=== PATIENT | male | born 1965 | race Caucasian/White ===

== ENCOUNTER 2018-07-06 06:55 | Day surgery (SDC) | payer OTHER, SELFPAY ==
[2018-07-06 07:04] VITALS: BP 135/82; PULSE 63; RESP 16; TEMP 36.9; O2SAT 99
[2018-07-06] MEDS: Lactated Ringers 1,000 ML 30 ML IV (07:38)
--- NOTE | 2018-07-06 09:55 | W.COLOREPORT ---
Date of service: 07/06/18 Time of Service: 09:30 Colonoscopy Report Date of procedure: 07/06/18 Pre-op diagnosis general: Colorectal cancer screening Post-op diagnosis procedure note: same Procedure: Normal colonoscopy to the cecum Surgeon: Álvaro Valdovinos Anesthesia proc note operative: MAC (Iris Corona CRNA; ASA 2 Mallampati class II) Estimated blood loss (mL): 0 Pathology: none sent Complications: None Disposition: same day Indications: 52-year-old male presenting for colorectal cancer screening. He is been asymptomatic, and has no family history of colorectal cancer. Colonoscopy procedure has been read and reviewed with him, and all the risks of the procedure were discussed at length. All his questions been answered to his satisfaction. Consents been obtained to proceed with colonoscopy. Prep: Miralax/Dulcolax (Prep quality excellent) Findings: In examining the colon from cecum to anus, no abnormalities were noted of the colon, rectum, and anorectal junction. Procedure Description: The patient was seen in the day surgery waiting area. His identification was confirmed, and procedure checked. He was then brought to the procedure room. Monitoring for telemetry, blood pressure, oxygen saturation, and end tidal CO2 monitoring were applied. An appropriate time out was performed to confirm, identification, allergies, medication, procedure, was performed. Sedation was titrated for affect by the GREY ROLL WORKER; Once adequate sedation was achieved, I performed a inspection of the external perineum, and a digitial rectal examination. No significant external abnormalities were noted. On digital rectal examination, there was no blood, no masses, good rectal tone, and a normal prostate. I advanced the colonoscope from the anus to the cecum under direct visualization. The cecum was identified by the ileal-cecal valve, and the appendiceal orifice. The scope was then withdrawn in circumferential manner from the cecum to the rectum. No abnormalites were noted in the colon. The scope was then withdrawn into the rectum, and retroflexed. No abnormalities were noted of the rectum or anorectal junction. The scope was then withdrawn, terminating the procedure. There were no complications during the procedure, and the patient tolerated the procedure well. He was returned to the day surgery recovery area in good condition. Plan: Will continue with routine screening for colorectal cancer according to current consensus guidelines, which is currently 10 years.
--- NOTE | 2018-07-06 10:02 | W.PM.DSUDISC ---
Discharge Plan Disposition Patient Disposition: HOME Condition: Good Discharge Details Reason For Visit: Screening Attending Provider: Álvaro Valdovinos Primary Care Provider: Navdeep Multani Home Meds and New Rx's Prescriptions: No Action bisacodyl [Dulcolax (bisacodyl)] 5 mg tablet,delayed release (DR/EC) 5 mg PO ONCE Qty: 4 RF: 0 polyethylene glycol 3350 17 gram/dose powder 255 g PO ONCE Qty: 255 RF: 0 omega 6-xid-ztc-fish oil 900-1,400 mg capsule,delayed release(DR/EC) 1 cap PO DAILY RF: 0 turmeric-turmeric ext-pepper 500-3 mg capsule 1,000 mg PO DAILY RF: 0 Centrum Ultra Men's 1 EACH tablet 1 ea PO DAILY RF: 0 ascorbic acid (vitamin C) [Vitamin C] 500 MG capsule, extended release 500 mg PO daily prn RF: 0 Discharge Instructions Instructions: Colonoscopy (DC) Stand Alone Forms: Colonoscopy Post Instructions, Smitha Clark (DSU) Activity:: Activity as Tolerated Diet:: As Tolerated Discharge Orders Discharge Orders: Discharge Order (Routine); Ordered 07/06/18 Ordered By: Álvaro Valdovinos DS: Diagnosis Discharge Diagnosis (1) Encounter for screening colonoscopy: Status: Acute Asessment and Plan: Colonoscopy performed: Colonoscopy Report Date of procedure: 07/06/18 Pre-op diagnosis general: Colorectal cancer screening Post-op diagnosis procedure note: same Procedure: Normal colonoscopy to the cecum Surgeon: Álvaro Valdovinos Anesthesia proc note operative: MAC (Iris Corona CRNA; ASA 2 Mallampati class II) Estimated blood loss (mL): 0 Pathology: none sent Complications: None Disposition: same day Indications: 52-year-old male presenting for colorectal cancer screening. He is been asymptomatic, and has no family history of colorectal cancer. Colonoscopy procedure has been read and reviewed with him, and all the risks of the procedure were discussed at length. All his questions been answered to his satisfaction. Consents been obtained to proceed with colonoscopy. Prep: Miralax/Dulcolax (Prep quality excellent) Findings: In examining the colon from cecum to anus, no abnormalities were noted of the colon, rectum, and anorectal junction. Procedure Description: The patient was seen in the day surgery waiting area. His identification was confirmed, and procedure checked. He was then brought to the procedure room. Monitoring for telemetry, blood pressure, oxygen saturation, and end tidal CO2 monitoring were applied. An appropriate time out was performed to confirm, identification, allergies, medication, procedure, was performed. Sedation was titrated for affect by the ROTARY DRYER OPERATOR; Once adequate sedation was achieved, I performed a inspection of the external perineum, and a digitial rectal examination. No significant external abnormalities were noted. On digital rectal examination, there was no blood, no masses, good rectal tone, and a normal prostate. I advanced the colonoscope from the anus to the cecum under direct visualization. The cecum was identified by the ileal-cecal valve, and the appendiceal orifice. The scope was then withdrawn in circumferential manner from the cecum to the rectum. No abnormalites were noted in the colon. The scope was then withdrawn into the rectum, and retroflexed. No abnormalities were noted of the rectum or anorectal junction. The scope was then withdrawn, terminating the procedure. There were no complications during the procedure, and the patient tolerated the procedure well. He was returned to the day surgery recovery area in good condition. Plan: Will continue with routine screening for colorectal cancer according to current consensus guidelines, which is currently 10 years.
[2018-07-06 10:05] VITALS: BP 115/62; PULSE 67; RESP 18; TEMP 36.6; O2SAT 94
--- NOTE | 2018-07-06 10:05 | PDOC.DSDIS_ITS ---
Discharge Plan Disposition Patient Disposition: HOME Condition: Good Discharge Details Reason For Visit: Screening Attending Provider: Álvaro Valdovinos Primary Care Provider: Navdeep Multani Home Meds and New Rx's Prescriptions: No Action bisacodyl [Dulcolax (bisacodyl)] 5 mg tablet,delayed release (DR/EC) 5 mg PO ONCE Qty: 4 RF: 0 polyethylene glycol 3350 17 gram/dose powder 255 g PO ONCE Qty: 255 RF: 0 omega 9-phn-xkp-fish oil 900-1,400 mg capsule,delayed release(DR/EC) 1 cap PO DAILY RF: 0 turmeric-turmeric ext-pepper 500-3 mg capsule 1,000 mg PO DAILY RF: 0 Centrum Ultra Men's 1 EACH tablet 1 ea PO DAILY RF: 0 ascorbic acid (vitamin C) [Vitamin C] 500 MG capsule, extended release 500 mg PO daily prn RF: 0 Discharge Instructions Instructions: Colonoscopy (DC) Stand Alone Forms: Colonoscopy Post Instructions, Smitha Clark (DSU) Activity:: Activity as Tolerated Diet:: As Tolerated Discharge Orders Discharge Orders: Discharge Order (Routine); Ordered 07/06/18 Ordered By: Álvaro Valdovinos DS: Diagnosis Discharge Diagnosis (1) Encounter for screening colonoscopy: Status: Acute Asessment and Plan: Colonoscopy performed: Colonoscopy Report Date of procedure: 07/06/18 Pre-op diagnosis general: Colorectal cancer screening Post-op diagnosis procedure note: same Procedure: Normal colonoscopy to the cecum Surgeon: Álvaro Valdovinos Anesthesia proc note operative: MAC (Iris Corona CRNA; ASA 2 Mallampati class II) Estimated blood loss (mL): 0 Pathology: none sent Complications: None Disposition: same day Indications: 52-year-old male presenting for colorectal cancer screening. He is been asymptomatic, and has no family history of colorectal cancer. Colonoscopy procedure has been read and reviewed with him, and all the risks of the procedure were discussed at length. All his questions been answered to his satisfaction. Consents been obtained to proceed with colonoscopy. Prep: Miralax/Dulcolax (Prep quality excellent) Findings: In examining the colon from cecum to anus, no abnormalities were noted of the c olon, rectum, and anorectal junction. Procedure Description: The patient was seen in the day surgery waiting area. His identification was confirmed, and procedure checked. He was then brought to the procedure room. Monitoring for telemetry, blood pressure, oxygen saturation, and end tidal CO2 monitoring were applied. An appropriate time out was performed to confirm, iden tification, allergies, medication, procedure, was performed. Sedation was titrated for affect by the VETERAN APPEALS REVIEWER; Once adequate sedation was achieved, I performed a inspection of the external perineum, and a digitial rectal examination. No significant external abnormalities were noted. On digital rectal examination, there was no blood, no masses, good rectal tone, and a normal prostate. I advanced the colonoscope from the anus to the cecum under direct visualization. The cecum was identified by the ileal-cecal valve, and the appendiceal orifice. The scope was then withdrawn in circumferential manner from the cecum to the rectum. No abnormalites were noted in the colon. The scope was then withdrawn into the rectum, and retroflexed. No abnormalities were noted of the rectum or anorectal junction. The scope was then withdrawn, terminating the procedure. There were no complications during the procedure, and the patient tolerated the procedure well. He was returned to the day surgery recovery area in good condition. Plan: Will continue with routine screening for colorectal cancer according to current consensus guidelines, which is currently 10 years.
== END 2018-07-06 10:15 | disposition home or self-care (01) ==
PROVIDERS: PCP Family Medicine; Visit Provider Surgery
PROC: 0DJD8ZZ Inspection of Lower Intestinal Tract, Via Natural or Artificial Opening Endoscopic (ICD-10-PCS; CPT 45378; principal; 2018-07-06 08:15)
DX: Z12.11 Encounter for screening for malignant neoplasm of colon (principal)
CPT/HCPCS: 45378

== ENCOUNTER 2021-09-24 03:29 | Outpatient (CLI) | payer BC, SELFPAY ==
[2021-09-24 08:03] LABS: Calculated LDL 128 mg/dL (<100); Cholesterol 195 mg/dL (<200); Glucose 96 mg/dL (74-106); HDL Cholesterol 55 mg/dL (40-60); Triglyceride 61 mg/dL (<150)
[2021-09-24 21:10] LABS: PSA, Screening 1.1 ng/mL (0.0-3.5)
== END 2021-09-24 03:30 | disposition home or self-care (01) ==
LOC: LBO 03:29
PROVIDERS: PCP Family Medicine; Visit Provider Family Medicine
DX: R73.9 Hyperglycemia, unspecified (principal); E78.5 Hyperlipidemia, unspecified; Z12.5 Encounter for screening for malignant neoplasm of prostate
CPT/HCPCS: 36415; 80061; 82947; 84153

== ENCOUNTER 2022-09-07 16:11 | Outpatient (CLI) | payer BC, SELFPAY ==
[2022-09-07 17:42] LABS: Calculated LDL 106 mg/dL (<100); Cholesterol 182 mg/dL (<200); HDL Cholesterol 59 mg/dL (40-60); Triglyceride 87 mg/dL (<150)
[2022-09-08 18:58] LABS: PSA, Screening 1.1 ng/mL (<=3.5)
[2022-09-15 09:37] LABS: Testosterone, Free 11.4 ng/dL (3.87-14.7); Testosterone, Total 512 ng/dL (240-950)
== END 2022-09-07 16:12 | disposition home or self-care (01) ==
LOC: LBO 16:14
PROVIDERS: PCP Family Medicine; Visit Provider Family Medicine
DX: Z00.00 Encounter for general adult medical examination without abnormal findings (principal); Z12.5 Encounter for screening for malignant neoplasm of prostate; E78.5 Hyperlipidemia, unspecified; M25.552 Pain in left hip; M25.551 Pain in right hip
CPT/HCPCS: 36415; 80061; 84153; 84402; 84403

== ENCOUNTER 2022-09-08 10:37 | Outpatient (CLI) | payer BC, SELFPAY ==
--- NOTE | 2022-09-08 09:15 | DI.RAD_ITS ---
Exam(s) XR HIP RT COMPLETE AP PELVIS EXAM: XR HIP RT COMPLETE AP PELVIS INDICATION: rt hip pain,M25.551. COMPARISON: No exams were available for comparison TECHNIQUE: 2D digital imaging was performed. Two views. FINDINGS: Mild bilateral hip joint space narrowing. Moderate bilateral periarticular spurring. No flattening of the femoral heads. SI joints and pubic symphysis are unremarkable. IMPRESSION: Symmetric degenerative changes of the hips. DATA REPOSITORY: RADIATION DOSE DELIVERED:
== END 2022-09-08 10:57 ==
LOC: DI 10:38
PROVIDERS: PCP Family Medicine; Visit Provider Family Medicine
DX: M16.0 Bilateral primary osteoarthritis of hip (principal)
CPT/HCPCS: 73502

== ENCOUNTER 2022-10-06 02:17 | Outpatient (CLI) | payer BC, SELFPAY ==
--- NOTE | 2022-10-06 08:00 | DI.MRI_ITS ---
Exam(s) MR UPPER JOINT RT WO EXAM: MR UPPER JOINT RT WO CLINICAL HISTORY: rt shoulder pain,m25.511,significant rc tear clinically TECHNIQUE: Multiplanar multisequence MRI of the shoulder was performed. COMPARISON: None. No plain films available time this MRI interpretation. FINDINGS: MARROW:There is no evidence of fracture, Hill-Sachs deformity, nor ominous osseous lesions. There is a E solitary well-defined degenerative subarticular cyst in the lateral aspect of the humeral head wh ich measures 9 by 7 by 7 millimeters. No surrounding bone edema. ROTATOR CUFF MECHANISM: AC JOINT/ACROMIUM: There is prominent degenerative change in the AC joint with some impingement evide nt.. There is no evidence of os acromiale. Supraspinatus: There is a large full-thickness tear of supraspinatus-rotator cuff with retraction mus culotendinous junction to the medial 3rd of humeral head leaving a large gap area. Continuity of flu id between the glenohumeral and subacromial spaces. There is no prominent atrophy. Infraspinatus: Intact. No evidence of tear nor muscle atrophy. Teres Minor: Intact. No evidence of tear nor muscle atrophy. Subscapularis/anterior cuff: Intact. No abnormal signal at the level of the multipennate insertional fibers. No significant tear nor atrophy. BICEPS TENDON: Not displaced from the number surrounded by fluid in the biceps tendon sheath. Loose bodies within the fluid-filled tendon sheath. LABRUM: There is signal abnormality in the superior labrum posterior to the biceps insertion site con sistent with element SLAP tear. There is also signal abnormality in the posterior horn consistent wi th some tearing of the posterior labrum. Anterior labrum appears intact. Inferior labrum exhibits m ild irregularity. No obvious tear of the inferior glenohumeral ligament. Small loose body in the in ferior recess noted. GLENOHUMERAL JOINT: Joint effusion. Some synovial thickening. Small loose intra-articular body in t he inferior recess. Small osteophyte on the inferior sacral ower surface of the humeral head. IMPRESSION: 1. Large full-thickness rotator cuff supraspinatus tear with retraction musculotendinous junction. O ther components of the rotator cuff mechanism appear intact. Significant degenerative change in the AC joint. Impingement noted at this level 2. No evidence of biceps tendon tear. Multilevel labral tears 3. Glenohumeral joint effusion with extension of fluid into the subacromial space and down the biceps tendon sheaths as well as into the medial recess. There is a small loose body in the inferior reces s noted. 4. Degenerative cyst measuring 9 x 7 mm in the lateral humeral head-greater tuberosity region. No s urrounding bone edema. DATA REPOSITORY:
== END 2022-10-06 02:37 ==
LOC: DI 02:18
PROVIDERS: PCP Family Medicine; Visit Provider Family Medicine
DX: M25.511 Pain in right shoulder (principal); M75.101 Unspecified rotator cuff tear or rupture of right shoulder, not specified as traumatic; M75.41 Impingement syndrome of right shoulder; M25.411 Effusion, right shoulder; M24.011 Loose body in right shoulder
CPT/HCPCS: 73221

== ENCOUNTER 2022-10-11 14:12 | Outpatient (CLI) | payer BC, SELFPAY ==
--- NOTE | 2022-10-11 14:14 | DI.RAD_ITS ---
Exam(s) XR SHOULDER RT COMPLETE 2+V EXAM: XR SHOULDER RT COMPLETE 2+V CLINICAL HISTORY: Right shoulder pain. TECHNIQUE: 2D digital imaging was performed. COMPARISON: No exams were available for comparison FINDINGS: Two views: No evidence of fracture or dislocation. There is no prominent glenohumeral joint space narrowing but there is small osteophyte on the inferior articular surface of the humeral head. There is also a de generative cyst in the lateral aspect of the humeral head. Subacromial space is not diminished and t here is no calcification within the subacromial space. Mild degenerative changes are noted in the AC joint. Coracoid process is intact. No os acromiale. No soft tissue calcifications in the subacrom ial space IMPRESSION: Degenerative changes in the glenohumeral joint, as described above. DATA REPOSITORY: RADIATION DOSE DELIVERED:
== END 2022-10-11 14:13 | disposition home or self-care (01) ==
LOC: DIORS 14:12
PROVIDERS: PCP Family Medicine; Referring Provider Family Medicine; Visit Provider Student in an Organized Health Care Education/Training Program
DX: M25.511 Pain in right shoulder (principal); M75.81 Other shoulder lesions, right shoulder; M25.811 Other specified joint disorders, right shoulder
CPT/HCPCS: 73030

== ENCOUNTER 2022-11-04 06:07 | Day surgery (SDC) | payer BC, SELFPAY ==
[2022-11-04] VITALS (12 sets, daily range): BP systolic 79–130; BP diastolic 59–92; PULSE 63–80; RESP 13–16; TEMP 36.3–36.6; O2SAT 94–98; BMI 26.9
[2022-11-04] MEDS: Lactated Ringers 1,000 ML 30 ML IV ×2 (06:53→11:35)
--- NOTE | 2022-11-04 07:02 | W.ANESPRE ---
General Info Date of Service Date Performed: 11/04/22 Height: 6 ft Weight: 89.9 kg Body Mass Index (BMI): 26.9 Surgical Procedure: Operation Date: 11/04/22 07:40 Proposed Procedure Side Surgeon p Shoulder Rotator Cuff Arthroscopic and possible Allograft Superior Capsular Reconstruction Right Guy Youngblood MD Meds Allergies and Home Medications Allergies Allergy/AdvReac Type Severity Reaction Status Date / Time No Known Allergies Allergy Verified 11/03/22 12:24 Home Medication Medication Instructions Recorded multivit,Ca,min-iron 8 mg-folic 1 ea PO DAILY 04/08/16 acid 200 mcg-lycopene 600 mcg tablet (Centrum unbound technologies Men's) ascorbic acid (vitamin C) 500 mg 500 mg PO daily prn 04/14/17 capsule,extended release (Vitamin C) omega 1-ybz-amj-fish oil 900 1 cap PO DAILY 04/27/18 mg-1,400 mg capsule,delayed release zinc 50 mg tablet 50 mg PO DAILY 05/08/20 meloxicam 15 mg tablet 15 mg PO DAILY #30 tabs 09/13/22 aspirin 81 mg tablet,delayed 81 mg PO DAILY prevent blood clot 11/04/22 release 7 days #7 tabs naproxen 250 mg tablet 250 - 500 mg PO BID PRN #40 tabs 11/04/22 oxycodone 5 mg tablet 5 - 10 mg PO Q4H PRN moderate to 11/04/22 severe pain #18 tabs Current Visit Medications: Current Medications Generic Name Dose Route Start Last Admin Trade Name Freq PRN Reason Stop Dose Admin Ringer's Solution 1,000 mls @ 30 mls/hr 11/04/22 06:00 11/04/22 06:53 IV 11/04/22 16:00 30 mls/hr INFUSION TONYA Administration Cefazolin Sodium/Dextrose 2 gm in 50 mls @ 100 mls/hr 11/04/22 06:00 Ancef Duplex IVPB 11/04/22 23:59 PREOP TONYA IV Miscellaneous Supplies 1 each 11/04/22 06:00 Iv Access IV 11/04/22 23:59 DIRECTED TONYA Sodium Chloride 0 ml 11/04/22 06:00 Normal Saline Flush 10 Ml Syr IV 11/04/22 23:59 PRN PRN Sodium Chloride 0 ml 11/04/22 06:00 Normal Saline 10 Ml Vial IJ 11/04/22 23:59 DIRECTED PRN Sterile Water 0 ml 11/04/22 06:00 Water,Injection,Sterile 10 Ml Vial IJ 11/04/22 23:59 DIRECTED PRN PFSH Active Problems Active Problems: Problem Status Onset Code Traumatic tear of right rotator cuff ~08/2022 S46.011A Right shoulder pain M25.511 Bilateral hip pain M25.551, M25.552 Low back pain M54.50 Ganglion cyst M67.40 Encounter for screening colonoscopy Z12.11 Adopted Z02.82 Medical History Medical History (Updated 11/04/22 @ 07:13 by Guy Youngblood MD) Normal colonoscopy (07/06/18) Dr Valdovinos, repeat 10 years Tobacco Smoking/Tobacco Use Status: Former Tobacco Use Passive smoking exposure: Yes Alcohol Alcohol Intake: current Alcohol intake frequency: a few times a week Alcohol type: beer and hard liquor Substance Use Substance use: Never Substance use type: does not use Vital Signs and Lab Results Vital Signs Most Recent Vital Signs in EMR: Most Recent Vital Signs Temp Pulse Resp BP Pulse Ox 36.5 C 76 16 108/79 98 11/04/22 06:26 11/04/22 06:26 11/04/22 06:26 11/04/22 06:26 11/04/22 06:26 Lab Results Blood Type / Crossmatch: No Data to Display Complete Blood Count: No Data to Display Complete Metabolic Panel: No Data to Display Liver Function Panel: No Data to Display Coagulation Panel: No Data to Display Cardiac Panel: No Data to Display Arterial Blood Gas: No Data to Display Venous Blood Gas: No Data to Display Pancreas Panel: No Data to Display Thyroid Panel: No Data to Display Infectious Disease: No Data to Display Blood Cultures: No Data to Display Toxicology Panel: No Data to Display Anesthesia Assessment and Plan Anesthesia History Personal History: No History of Anesthesia Complications Family History: No Family History of Anesthesia Complications Exercise Tolerance Exercise Tolerance: Metabolic Equivalents>4 Pertinent Negatives Pertinent Negatives: No Symptoms of GERD, No Major Cardiovascular Symptoms or Complaints, No Major Pulmonary Symptoms or Complaints and No History of CVA/TIA Cardiac & Pulmonary Exam Cardiac Exam: Normal S1/S2 Heart Sounds Pulmonary Exam: Clear Bilateral Breath Sounds Implantable Cardiac Device Does patient have a Pacemaker or an ICD?: No Airway Exam Known Difficult Airway: No Mallampati Class: 1 Mouth Opening: Normal (> 3cm) Thyromental Distance: Greater than 3 cm Neck Range of Motion: Full ROM Neck Circumference: Normal Teeth Condition: Normal Dentition ASA Classification ASA Score: ASA 2 Emergency Case?: No NPO Status NPO Status: NPO Clears >2 hours, Solids >8 hours Anesthesia Plan Resuscitation Status: Full Code Anesthesia Technique: General Anesthesia Airway Planned: Endotracheal Tube Pain Management: Surgeon and patient request nerve block Monitors Used: Standard Monitors
--- NOTE | 2022-11-04 07:13 | W.PM.DSUDISC ---
Date of service: 11/04/22 Time of Service: 11:00 Discharge Plan Disposition Patient Disposition: Home Discharge Details Attending Provider: Guy Youngblood Primary Care Provider: Navdeep Multani Home Meds and New Rx's Prescriptions: New naproxen 250 mg tablet 250 - 500 mg PO BID PRNQty: 40 0RF Rx Instructions: take with a meal aspirin 81 mg tablet,delayed release (DR/EC) 81 mg PO DAILY 7 Days Qty: 7 0RF oxycodone 5 mg tablet 5 - 10 mg PO Q4H MDD 30 mg PRN (Reason: moderate to severe pain) Qty: 18 0RF Continued zinc 50 mg tablet 50 mg PO DAILY omega 6-oqk-ozh-fish oil 900-1,400 mg capsule,delayed release(DR/EC) 1 cap PO DAILY Centrum Ultra Men's 1 EACH tablet 1 ea PO DAILY ascorbic acid (vitamin C) [Vitamin C] 500 MG capsule, extended release 500 mg PO daily prn meloxicam 15 mg tablet 15 mg PO DAILY Qty: 30 2RF Discharge Instructions Additional Instructions: Surgery: Right shoulder arthroscopy with allograft superior capsular reconstruction, rotator cuff repair (infraspinatus), biceps tenodesis, extensive debridement, and subacromial decompression. Activity: For 6 weeks, you should keep your arm at your side in a neutral position at all times except for physical therapy. Do not try to lift or raise your arm using your own muscles. You should use the sling whenever you are out of the house. You may have to adjust the abduction pillow or remove it for comfort. At home it is best to remove the sling and rest the arm on a pillow at your side or support the operative side with your other hand. You may allow the arm to dangle at your side. A physical therapy prescription will be sent electronically to begin in about 3 weeks. CONSERVATIVE protocol. Prescriptions: Aspirin 81 mg take 1 daily to prevent a blood clot for 7 days Naproxen 250 mg take 1-2 every 12 hours with a meal as needed for moderate pain Oxycodone 5 mg take 1-2 every 4-6 hours as needed for severe pain You may use [id number] Tylenol (acetaminophen) as needed for mild pain. These pain medications may be taken all at once or in different combinations as needed. Also, recommend Colace (docusate) as a stool softener as surgery and pain medicine cause constipation. You may try [id number]-[id number] diphenhydramine (Benadryl) 25-50 mg nightly as a sleep aid Dressings: Remove shoulder bandage after 3 days. Leave the sticky Steri-Strips in place until they fall off or remove them after you shower. Cover the incisions with Band-Aids or leave them open to air. You may shower after 5 days. Follow-up: 10-[address] Youngblood You may take off the leg compression stockings this evening at home. You may also leave them on a few days longer if you have a history of leg swelling or edema. Let us know right away if you develop any redness, drainage, fevers, chest pain, or trouble breathing. Do not drink alcohol or drive for at least 24 hours after anesthesia. Please call the office during business hours with any questions or concerns. Discharge Orders Discharge Orders: Discharge Order (Routine); Ordered 11/04/22 Ordered By: Guy Youngblood DS: Diagnosis Discharge Diagnosis (1) Traumatic tear of right rotator cuff: Status: Acute
--- NOTE | 2022-11-04 07:15 | ROE_ITS ---
Date of service: 11/04/22 Time of Service: 07:30 Operative Note Operative Note DATE OF PROCEDURE: 11/04/22 PRE-OP DIAGNOSIS: Right: 1. Traumatic medial trans-tendinous rotator cuff tear 2. SLAP tear 3. Bursitis POST-OP DIAGNOSIS: same PROCEDURE: Right: 1. Arthroscopic superior capsular reconstruction, CPT #13696: This involved dermal allograft reconstruction of deficient superior capsule to maintain glenohumeral stability and prevent superior humeral migration. 2. Rotator cuff repair, CPT# 86349. This involved suture and anchor repair of the posterior supraspinatus remnant to the greater tuberosity and infraspinatus to the capsular reconstruction and directly back to the tuberosity 3. Arthroscopic biceps tenodesis, CPT# 36193. This involved arthroscopically suturing and reattaching the long head of the biceps tendon to the proximal humerus at the superior margin of the bicipital groove with a screw at the correct tension. 4. Extensive debridement, CPT# 80120. This involved using arthroscopic hand instruments, power instruments, and radiofrequency instruments to release the long head of the biceps tendon and debride areas of labral tearing, SLAP tear, synovitis, and chondromalacia about the humeral head, and greater tuberosity bone working within the glenohumeral joint anteriorly, superiorly and posteriorly. 5. Subacromial decompression with partial acromioplasty, CPT# 10724. This involved using arthroscopic power instruments and a radiofrequency wand to complete a bursectomy and abrade the undersurface of the acromion to release bone marrow factors. The billing and accounting staff assistant was medically required in order to help assist in techniques above, which require positioning the arm, holding the arthroscope, and manipulating multiple instruments and sutures at the same time. This cannot be done without the help of an experienced billing and accounting staff assistant. SURGEON: Guy Youngblood INTERNAL CONTROL MANAGER: Joyce Dolan ANESTHESIA TYPE: General LMA/ETT and Primary Nerve Block Refer to Anesthesia Record ESTIMATED BLOOD LOSS: 10 PATHOLOGY: none sent COMPLICATIONS: None Patient was transported to: PACU Patient's condition: stable Implants: Arthrex: 3.9 mm knotless corkscrew anchors x2, 4.75 mm swivel locks x5 Indications: The patient was diagnosed with the above conditions and appropriately indicated for surgical intervention. Please see complete medical record for details. Findings: Exam under anesthesia: Full range of motion, no instability Glenohumeral joint: Significant acute on chronic degenerative and pathologic changes including posterior humeral head chondromalacia, massive medial?trans tenderness supersize rotator cuff tear, long head biceps injection, and biceps anchor unstable SLAP tear, intact subscapularis Subacromial space: Significant bursitis, obvious complete retracted medial supraspinous rotator cuff tear with minimal tendon excursion and fraying and weak tendon remnant. Largely intact infraspinatus wrapping around posterior laterally except for some of the leading edge fibers near the supraspinatus tear and separate layers delaminated. Procedure Description: In the operating room, general anesthesia was induced. Bilateral shoulders were examined. The patient was positioned in the beachchair position. All bony prominences were well-padded. Preoperative antibiotics were administered. The shoulder was prepped and draped in the usual sterile fashion. The correct patient, procedure, and side of the procedure were all verified prior to incision. Starting through the posterior portal a standard complete diagnostic arthroscopy was performed of the glenohumeral joint including inspection of the long head of the biceps, anterior and superior labrum, subscapularis tendon, supraspinatus and infraspinatus tendons, and axillary recess. The glenoid and humeral head cartilage as well as the posterior labrum were inspected from an anterior viewing portal. Significant findings and interventions noted above. Complete retracted supraspinatus rotator cuff tear, medial trans tenderness with obvious inability to repair to bone. Greater tuberosity significant tendon remnant poor quality for xjvj-ll-opid tissue healing. Moderate diffuse glenoid humeral head chondromalacia with focal multiple high- grade lesions posteriorly humeral head. Debrided lightly. Significant anterior, rotator interval synovitis, long head biceps intra-articular injection and obvious high?grade SLAP tear involving the biceps anchor. Loop intact biceps tenodesis maintaining tension superior aspect bicipital groove with extra security stitch over the top. The arthroscope was redirected into the subacromial space. Bursectomy completed with usual lateral, superior anterior and posterior lateral portals established. Subscapularis intact. Supraspinous tear started at the transverse humeral ligament essentially at the biceps tendon and anteriormost fibers of the supraspinatus. Rotator cuff was attempted to be mobilized, but unable to reach even a medialized footprint. Tag stitch was placed in the rotator cuff and it was retracted medially. The glenoid was thoroughly prepared. Knotless corkscrew anchors placed anteriorly and superiorly. Medial row SwiveLock anchors were placed. Arm was positioned for reconstruction and dimensions measured. Graft prepared on the back table with appropriate sizing. Medial row tapes and other repair stitch was withdrawn out and passed through the prepunch locations in the medial row of the graft. The anterior glenoid repair suture was then withdrawn shuttled through the graft inverted horizontal mattress with the scorpion and then shuttled back through the anchor. Was repeated for the superior glenoid repair suture. The graft was folded over and the back grasper used to guide the graft into the joint while tensioning the glenoid anchors. The graft was secured medially. The medial row greater tuberosity sutures were all organized. The supraspinatus again was checked and unfortunately still did not have any reasonable excursion from medial essentially at the level of the glenoid to lateral for what was attempted cuff repair over the graft. The tag stitch was removed. The knotless repair sutures from the anterior medial anchor were removed. A single safety stitch from the posterior anchor was removed. The reconstruction was completed in a speed bridge fashion using a tape from the anterior and posterior medial row anchors to an anterior lateral anchor and repeating this for posterior lateral anchor with excellent compression and tissue coverage over the prepared greater tuberosity. A [id number] repair of the infraspinatus the superior capsular allograft was then done secured together with [facility] arthroscopic knot. The remaining posterior medial row safety stitch was then passed through the infraspinatus wrapping around incorporating all layers of its partial tearing and secured using a last [facility] arthroscopic knot over and around the posterior aspect of the reconstruction greater tuberosity. There was excellent repair and stability. Humeral head no longer engaged the acromion superiorly. The undersurface the acromion was abraded to release bone marrow factors for this massive repair reconstruction. The shoulder was drained of arthroscopic fluid. All portal sites were copiously irrigated. These incisions were closed using 3-0 Monocryl in a buried fashion and then covered with Mastisol, Steri-Strips, Xeroform, dry gauze, and ABDs. The dressings were covered and secured with Medipore tape. The operative extremity was placed into a sling for immobilization. The patient awoke from anesthesia without complication and was transferred to the recovery room in a stable condition.
[2022-11-04] MEDS: ceFAZolin 2 GM/50 ML BAG IVPB (08:03)
--- NOTE | 2022-11-04 08:31 | W.ANESNERVE ---
Nerve Block Single Injection Procedure Date and Time Date Performed: 11/04/22 Procedure Start: 07:20 Location Where Procedure Performed Procedure Location: Day Surgery Unit Reason Performed: Postoperative Analgesia Requesting Provider: Guy Youngblood Timeout Performed Timeout Performed: Yes Monitoring Used ECG, Blood Pressure and SpO2 Sterility Sterility: Hand Hygiene, Surgical Cap, Surgical Mask, Sterile Gloves and Chlorhexidine Sedation Given During Procedure Sedation Given (Indicate Dose Given): Versed IV Dose:: 2mg Patient Mental Status Patient Mental Status: Awake Nerve Block 1st Nerve Block: Laterality: Right Block Type: Interscalene Ultrasound Image Saved?: Yes Needle / Catheter Used: 100mm SonoPlex II Local Anesthetic Bolus (Indicate Dose Given): Injected in 3-5ml increments after negative blood aspiration, Bupivacaine 0.5% Dose:: 10ml and Exparel Dose:: 10ml Additives (Indicate Dose Given): None Ultrasound: Sterile probe cover and gel used Nerve Stimulator: Not Used Paresthesia: None Procedure Tolerated: No Complications and Patient tolerated well Procedure Outcome: Successful Performed By: Iris Youngblood
[2022-11-04] MEDS: EPINEPHrine 30 MG/30 ML VIAL (08:35)
[2022-11-04] MEDS: Ketorolac 15 MG/ML VIAL IVP (12:08)
--- NOTE | 2022-11-04 13:26 | W.ANESPOSTOP ---
Postoperative Evaluation Date, Time and Location Date Performed: 11/04/22 Time Performed: 13:26 Patient Location: Day Surgery Unit Vital Signs Most Recent Imported Vital Signs: Most Recent Vital Signs Temp Pulse Resp BP Pulse Ox 36.3 C L 71 16 118/69 95 11/04/22 12:51 11/04/22 12:51 11/04/22 12:51 11/04/22 12:51 11/04/22 12:51 Pain Score Most Recent Pain Score: Most Recent Pain Score Pain Level 2 11/04/22 12:51 Assessment Mental Status: Awake (Alert & Oriented to Patient Baseline) Airway and Respiratory Function: Patent airway with normal (patient baseline) respiratory exam Cardiovascular Function: Hemodynamically Stable Hydration Status: Adequately Hydrated Nausea & Vomiting: No Nausea or Vomiting Pain: Pain is tolerable per patient Peripheral Nerve Block: Regional nerve block not resolved at time of post operative discharge Postoperative Comments:: Bilateral heels red and painful upon awakening in PACU, discomfort in heels is resolving, they just tingle a bit now.
== END 2022-11-04 14:30 | disposition home or self-care (01) ==
PROVIDERS: PCP Family Medicine; Visit Provider Student in an Organized Health Care Education/Training Program
PROC: (CPT 29827; principal; 2022-11-04 07:30)
DX: S46.011A Strain of muscle(s) and tendon(s) of the rotator cuff of right shoulder, initial encounter (principal); S43.431A Superior glenoid labrum lesion of right shoulder, initial encounter; X58.XXXA Exposure to other specified factors, initial encounter; M75.51 Bursitis of right shoulder; M94.211 Chondromalacia, right shoulder; M75.21 Bicipital tendinitis, right shoulder
CPT/HCPCS: 29806; 29827; 29828; 29823; 29826; 76942; J0131; J0690; J1100; J1885; J2250; J2370; J2405; J2704

== ENCOUNTER 2024-08-17 08:06 | Emergency (ER) | payer OTHER, SELFPAY ==
[2024-08-17] VITALS (63 sets, daily range): BP systolic 78–126; BP diastolic 54–91; PULSE 37–191; RESP 9–23; TEMP 36.3; O2SAT 94–100
--- NOTE | 2024-08-17 08:00 | RT.EKG_ITS ---
APPROVED REPORT Exam: Resting ECG Reason for Exam: palpations Patient Location: E HR:62 bpm ECG Measurements Heart Rate 62 AXIS WV 180 P 56 QRSd 117 QRS -37 QT 472 T 110 QTc 482 Conclusion Sinus rhythm...normal P axis, V-rate 60- 99 Multiform ventricular premature complexes...short R-R, variable morphology Probable left atrial enlargement...P >50mS, <-0.10mV V1 Left ventricular hypertrophy...multiple LVH criteria Physician: Sinus, multiple PVC's w/ PAC's
--- NOTE | 2024-08-17 08:00 | RT.EKG_ITS ---
APPROVED REPORT Exam: Resting ECG Reason for Exam: Palpitations Patient Location: E HR:142 bpm ECG Measurements Heart Rate 142 AXIS HI [id number] P [id number] QRSd 119 QRS -29 QT 339 T 111 QTc 522 Conclusion Atrial fibrillation...V-rate 109-169, irreg A-activity Probable LVH with secondary repol abnrm...multiple LVH criteria Prolonged QT interval...QTc >500mS I have reviewed and interpreted ECG and agree with software generated interpretation.
--- OUTSIDE RECORDS SUMMARY | 2024-08-17 08:14 | XMS_ITS | Encounter Summary ---
Author Organization [facility] [place] [address] Care Team Providers Care Pharmacist Critical Care Name Role Phone Navdeep Mulatni MD Primary Care Provider [phone] Encounter Details Date Type Department Care Team (Late st Contact Info) Description 02/09/2022 Orders [place] [address] Barbara Ryan APRN [facility] [place] [address] Mass of upper inner quadrant of left breast (Primary Dx) Social History Tobacco Use Types Packs/Day Years Used Date Smoking Tobacco: Never Assessed Sex and Gender Information Value Date Recorded Sex Assigned at Not on file Gender Identity Not on file Sexual Orientation Not on file documented as of this encounter Plan of Treatment Not on file documented as of this encounter Results * US Breast Limited Left (02/16/2022 9:33 AM EDT) Anatomical Region Laterality Modality Breast Left Mammography Impressions 02/16/2022 9:39 AM EDT No mammographic or directed ultrasound evidence of malignancy. Directed ultrasound depicts a sonographically benign appearing lipoma measuring 1.6 cm. BI-RADS Category 2: Benign Findings Thank you for letting us participate in the care of this patient. ??If you are a health care provider and have any questions regarding this report, please contact the number below. ??For patients who have questions please contact the health manager intensive care that requested your imaging first. ? Narrative 02/16/2022 9:39 AM EDT EXAMINATION: MAMMO DIAGNOSTIC CAD AND PROSPER BILATERAL, US ??BREAST LIMITED LEFT CLINICAL HISTORY: left breast lump TECHNIQUE: CC and MLO views were obtained of each breast. 2-D and 3- D tomosynthesis images were obtained. Computer aided detection was used. Imaging was performed with metallic marker applied to the palpable area of concern and a spot tangential view was performed. Directed ultrasound was performed of the lump in the left upper inner quadrant. COMPARISON: None FINDINGS: The breasts are almost entirely fatty. There are no suspicious masses, suspicious microcalcifications, or areas of architectural distortion. Directed ultrasound confirms a sonographically isoechoic oval circumscribed mass measuring 1.6 cm corresponding to the palpable area of concern. This is superficially located and is consistent with a benign lipoma. Celia Yoo MD IMG MAMMO ORDERABLE S * Mammo Diagnostic CAD and Prosper Bilateral (02/16/2022 8:48 AM EDT) Anatomical Region Laterality Modality Breast Bilateral Mammography Impressions 02/16/2022 9:39 AM EDT No mammographic or directed ultrasound evidence of malignancy. Directed ultrasound depicts a sonographically benign appearing lipoma measuring 1.6 cm. BI-RADS Category 2: Benign Findings Thank you for letting us participate in the care of this patient. ??If you are a health care provider and have any questions regarding this report, please contact the number below. ??For patients who have questions please contact the health manager intensive care that requested your imaging first. ? Narrative 02/16/2022 9:39 AM EDT EXAMINATION: MAMMO DIAGNOSTIC CAD AND PROSPER BILATERAL, US ??BREAST LIMITED LEFT CLINICAL HISTORY: left breast lump TECHNIQUE: CC and MLO views were obtained of each breast. 2-D and 3- D tomosynthesis images were obtained. Computer aided detection was used. Imaging was performed with metallic marker applied to the palpable area of concern and a spot tangential view was performed. Directed ultrasound was performed of the lump in the left upper inner quadrant. COMPARISON: None FINDINGS: The breasts are almost entirely fatty. There are no suspicious masses, suspicious microcalcifications, or areas of architectural distortion. Directed ultrasound confirms a sonographically isoechoic oval circumscribed mass measuring 1.6 cm corresponding to the palpable area of concern. This is superficially located and is consistent with a benign lipoma. Celia Yoo MD IMG MAMMO ORDERABLE S documented in this encounter Visit Diagnoses Diagnosis Mass of upper inner quadrant of left breast- Primary Mass of upper inner quadrant of left breast Mass of upper inner quadrant of left breast documented in this encounter Care Teams Pharmacist Critical Care Relationship Specialty Start Date End Date Navdeep Multani MD [address] [place] [address] PCP - General Family Medicine 02/08/22 documented as of this encounter
--- OUTSIDE RECORDS SUMMARY | 2024-08-17 08:14 | XMS_ITS | Clinical Summary ---
Author Organization [facility] Address [address] [place] [address] Care Team Providers Care Vasc Tech Name Role Phone Unavailable Primary Care Provider Unavailabl e Social History Tobacco Use Types Packs/Day Years Used Date Smoking Tobacco: Never Assessed Sex and Gender Information Value Date Recorded Sex Assigned at Not on file Legal Sex Male 13:08 EDT Gender Identity Not on file Sexual Orientation Not on file Plan of Treatment Health Maintenance Due Date Last Done Comments Hepatitis C Screen 1965 Hepatitis B Vaccine (1 of 3 - 19+ 3-dose series) 11/21 COVID-19 Vaccine ( season) 2024
--- OUTSIDE RECORDS SUMMARY | 2024-08-17 08:14 | XMS_ITS | Clinical Summary ---
Author Organization [facility] [place] [address] Care Team Providers Care Supervisor Cigar Making Machine Name Role Phone Navdeep Multani MD Primary Care Provider [phone] Allergies No known active allergies Medications Medication Sig Dispensed Refills Start Date End Date Status multivitamin Capsule Take 1 capsule by mouth daily. Active FISH OIL-DHA-EPA ORAL Take by mouth. Active ZINC ORAL Take by mouth. Active Active Problems No known active problems Social History Tobacco Use Types Packs/Day Years Used Date Smoking Tobacco: Former Comments:pt quit 10 plus yrs ago Sex and Gender Information Value Date Recorded Sex Assigned at Not on file Gender Identity Not on file Sexual Orientation Not on file Last Filed Vital Signs Vital Sign Reading Time Taken Comments Blood Pressure 116/67 02/16/2022 7:51 AM EDT Pulse 67 02/16/2022 7:51 AM EDT Temperature - - Respiratory Rate - - Oxygen Saturation 99% 02/16/2022 7:51 AM EDT Inhaled Oxygen Concentration - - Weight 91.9 kg (202 lb 8 oz) 02/16/2022 7:51 AM EDT Height 181 cm (5' 11.26) 02/16/2022 7:51 AM EDT Body Mass Index 28.04 02/16/2022 7:51 AM EDT Plan of Treatment Health Maintenance Due Date Last Done Comments CT Colonography 1966 Colonoscopy 1966 Colorectal Cancer Screening 1966 FIT DNA 1966 FIT 1966 Sigmoidoscopy (10 year) with FIT yearly 1966 Sigmoidoscopy 1966 HIV screen 1984 Hepatitis C Screening 1984 Lipid Screening 1984 Hepatitis B vaccine (0-59 yrs) (1) 1985 Tetanus/Diphtheria/Pertussis Vaccines (1 - Tdap) 11/21 Diabetes Screening (HgbA1C or Glucose) 2006 Pneumoccocal Vaccine: 50+ (1 of 1 - PCV) 2016 Zoster vaccine (1 of 2) 2016 Advance Directive 2021 Covid-19 Vaccine (1 - 2023- season) 2024 Influenza (Flu) vaccine (1 o f 1 - Influenza standard series) 03/03/2024 Care Teams Supervisor Cigar Making Machine Relationship Specialty Start Date End Date Navdeep Multani MD [address] [place], [place] [id number] PCP - General Family Medicine 02/08/22
--- OUTSIDE RECORDS SUMMARY | 2024-08-17 08:14 | XMS_ITS | Encounter Summary ---
Author Organization [facility] Address [address] [place] [address] Care Team Providers Care Managed Care Liaison Name Role Phone Unavailable Primary Care Provider Unavailabl e Encounter Details Date Type Department Care Team (Late st Contact Info) Description 09/24/2021 Lab Requisition [facility] Pathology & Laboratory Medicine - [facility] [address] [place] [address] Outr Resulting Lab, Provider Social History Tobacco Use Types Packs/Day Years Used Date Smoking Tobacco: Never Assessed Sex and Gender Information Value Date Recorded Sex Assigned at Not on file Legal Sex Male 13:08 EDT Gender Identity Not on file Sexual Orientation Not on file documented as of this encounter Plan of Treatment Not on file documented as of this encounter Procedures Procedure Name Priority Date/Time Associated Diagnosis Comments PSA TOTAL, DIAGNOSTIC Routine 09/24/2021 7:02 EDT documented in this encounter Results * PSA TOTAL, DIAGNOSTIC (09/24/2021 7:02 EDT) PSA 1.1 0.0 - 3.5 ng/mL 09/24/2021 21:06 EDT [facility] Blood VENOUS BLOOD / Unknown 09/24/2021 7:02 EDT 09/24/2021 18:59 EDT Narrative [facility] - 09/24/2021 21:06 EDT NOTE: Serum PSA concentration should not be interpreted as absolute evidence for the presence or absence of malignant disease. Assayed on Siemens ADVIA Centaur XPT using chemiluminescent technology.??Values obtained by using different assay methods cannot be used interchangeably. us Provider Outr Resulting Lab CHEMISTRY & BLOOD GA S ORDERABLES Final Result [facility] [address] [place] [address] documented in this encounter Visit Diagnoses Not on filedocumented in this encounter
--- OUTSIDE RECORDS SUMMARY | 2024-08-17 08:14 | XMS_ITS | Encounter Summary ---
Author Organization [facility] Address [address] [place] [address] Care Team Providers Care Fire Code Inspector Name Role Phone Unavailable Primary Care Provider Unavailabl e Encounter Details Date Type Department Care Team (Late st Contact Info) Description 09/08/2022 Lab Requisition [facility] Pathology & Laboratory Medicine - [facility] [address] [place] [address] Outr Resulting Lab, Provider Social History Tobacco [...] Associated Diagnosis Comments PSA TOTAL, DIAGNOSTIC Routine 09/07/2022 16:12 EST documented in this encounter Results * PSA TOTAL, DIAGNOSTIC (09/07/2022 16:12 EST) PSA 1.1 <=3.5 ng/mL 09/08/2022 18:53 EST [facility] Blood VENOUS BLOOD / Unknown 09/07/2022 16:12 EST 09/08/2022 17:12 EST Narrative [facility] - 09/08/2022 18:53 EST NOTE: Serum PSA concentration should not be interpreted as absolute evidence for the presence or absence of malignant disease. Assayed on Siemens ADVIA Centaur XPT using chemiluminescent technology.??Values obtained by using different assay methods cannot be used interchangeably. us Provider Outr Resulting Lab CHEMISTRY & BLOOD GA S ORDERABLES Final Result [facility] [address] [place] [address] documented in this encounter Visit Diagnoses Not on filedocumented in this encounter
--- OUTSIDE RECORDS SUMMARY | 2024-08-17 08:14 | XMS_ITS | Referral Summary ---
Author Organization [facility] Address [address] [place] [address] Care Team Providers Care Academic Affairs Dean Name Role Phone Unavailable Primary Care Provider Unavailabl e Social History Tobacco Use Types Packs/Day Years Used Date Smoking Tobacco: Never Assessed Sex and Gender Information Value Date Recorded Sex Assigned at Not on file Legal Sex Male 13:08 EDT Gender Identity Not on file Sexual Orientation Not on file Plan of Treatment Not on file
--- OUTSIDE RECORDS SUMMARY | 2024-08-17 08:14 | XMS_ITS | Encounter Summary ---
Author Organization [facility] Address [facility] [place] [address] Care Team Providers Care Tunnel Elastic Operator Lockstitch Name Role Phone Navdeep Multani MD Primary Care Provider [phone] Encounter Details Date Type Department Care Team (Latest Contact Info) Description 02/16/2022 8:24 AM EDT - 02/16/2022 11:59 PM EDT Hospital Encounter Mammography at [facility] [place] [address] Celia Yoo MD [facility] [place] [address] Mass of upper inner quadrant of left breast Discharge Disposition: Home Social History Tobacco Use Types Packs/Day Years Used Date Smoking Tobacco: Former Comments:pt quit 10 plus yrs ago Sex and Gender Information Value Date Recorded Sex Assigned at Not on file Gender Identity Not on file Sexual Orientation Not on file documented as of this encounter Medications at Time of Discharge Medication Sig Dispensed Refills Start Date End Date multivitamin Capsule Take 1 capsule by mouth daily. FISH OIL-DHA-EPA ORAL Take by mouth. ZINC ORAL Take by mouth. documented as of this encounter Plan of Treatment Not on file documented as of this encounter Procedures Procedure Name Priority Date/Time Associated Diagnosis Comments MAMMO DIAGNOSTIC CAD AND CHINO BILATERAL Routine 02/16/2022 8:48 AM EDT Mass of upper inner quadrant of left breast documented in this encounter Results * Mammo Diagnostic CAD and Chino Bilateral (02/16/2022 8:48 AM EDT) Anatomical Region [...] who have questions please contact the health rn critical care that requested your imaging first. ? Electronically signed by: Iris Simmons MD, [facility] ([phone]), at 02/16/2022 9:39 AM Narrative 02/16/2022 9:39 AM EDT EXAMINATION: MAMMO DIAGNOSTIC CAD AND CHINO BILATERAL, US ??BREAST LIMITED LEFT CLINICAL HISTORY: [...] breast documented in this encounter Care Teams Tunnel Elastic Operator Lockstitch Relationship Specialty Start Date End Date Navdeep Multani MD [address] [place] [address] PCP - General Family Medicine 02/08/22 documented as of this encounter
--- OUTSIDE RECORDS SUMMARY | 2024-08-17 08:14 | XMS_ITS | Encounter Summary ---
Author Organization [facility]ly [facility] [address] Care Team Providers Care Loop Sewer Name Role Phone Navdeep Multani MD Primary Care Provider [phone] Reason for Visit * Reason Comments Establish Care * Consultation (Urgent) - Closed Specialty Diagnoses / Procedures Referred By Reyna t Referred To Contact Hematology and Oncology Diagnoses Mass of left breast, unspecified quadrant Alexa Alcazar, PA [address] [place] [address] [facility] [address] [place] [address] Referral ID Status Reason Start Date Expiration Date V isits Requested Visits Authorized [id number] Closed Consult, Test & Treat PCP Updated and/or Approved 02/08/2022 02/08/2023 6 6 Encounter Details Date Type Department Care Team (Late st Contact Info) Description 02/16/2022 8:00 AM EDT Office Visit [place] [address] Barbara Ryan APRN [facility] [place] [address] Mass of upper inner quadrant of left breast Social History Tobacco Use Types Packs/Day Years Used Date Smoking Tobacco: Former Comments:pt quit 10 plus yrs ago Sex and Gender Information Value Date Recorded Sex Assigned at Not on file Gender Identity Not on file Sexual Orientation Not on file documented as of this encounter Last Filed Vital Signs Vital Sign Reading [...] Mass Index 28.04 02/16/2022 7:51 AM EDT documented in this encounter Progress Notes * Barbara Ryan, DUCT LAYER HELPER - 02/16/2022 8:00 AM EDT Mark Sandoval is a 56 y.o. year-old patient who is self referred is seen at the request of GLENIS Gaxiola for evaluation of a left breast mass. Mr. Sandoval appreciated this himself. He had some tenderness but this has resolved since he stoppedtouching it so frequently. He denies any skin changes, breast trauma ,prior breast surgery or nipple discharge. He is scheduled for breast imaging later today. Weight stable. He has no new or concerning complaints of fatigue,cardiovascular or respiratory symptoms. All other ROS are negative. Family History: He is adopted and unsure of family history Social History: He lives with his . 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 He quit smoking in 2007 (smoked for 10 years). Weekly etoh, not more than two drinks per day. Past Medical History: generally healthy Past Surgical History: oral surgery Physical Exam: He looks well and is in no apparent distress. His skin is anicteric with good turgor.Sclera are anicteric. His head and neck are without masses or adenopathy. His arms have good ROM without any evidence of lymphedema. His breasts are symmetric. His nipples are everted. There is no axillary adenopathy on the right or the left. There are no skin changes or dimpling noted in either breast. The right breast is without masses. The left breast is notable for a 1 cm smooth, well circumscribed mass at 10:00. He has a trunk with multiple lipomas. Assessment: Clinical breast exam notable for a left breast mass that feels consistent with a lipoma. Plan: I have explained to him that I feel reassured by his exam. He will have imaging later this morning. I will call him with results. He would like to possibly see a general surgeon to have his multiple lipomas removed. Barbara Ryan APRN documented in this encounter Plan of Treatment Not on file documented as of this encounter Visit Diagnoses Diagnosis Mass of upper inner quadrant of left breast documented in this encounter Care Teams Loop Sewer Relationship Specialty Start Date End Date Navdeep Multani MD [address] [place] [address] PCP - General Family Medicine 02/08/22 documented as of this encounter
--- OUTSIDE RECORDS SUMMARY | 2024-08-17 08:14 | XMS_ITS | Encounter Summary ---
[place] [address] Care Team Providers Care Education Manager Name Role Phone Navdeep Multani MD Primary Care Provider [phone] Reason for Referral * Consultation (Urgent) - Closed Specialty Diagnoses / Procedures Referred By Reyna farrell Referred To Contact Hematology and Oncology Diagnoses Mass of left breast, unspecified quadrant Alexa Alcazar PA [facility] [place] [address] [facility] [address] [place] [address] Referral ID Status Reason Start Date Expiration Date V isits Requested Visits Authorized [id number] Closed Consult, Test & Treat PCP Updated and/or Approved 02/08/2022 02/08/2023 6 6 Encounter Details Date Type Department Care Team (Late st Contact Info) Description 02/08/2022 Transcribe Orders eDH Incoming Referrals [phone] Alexa Alcazar PA [facility] [address] [place], [place] [id number] Mass of left breast, unspecified quadrant Social History Tobacco Use Types Packs/Day Years Used Date Smoking Tobacco: Never Assessed Sex and Gender Information Value Date Recorded Sex Assigned at Not on file Gender Identity Not on file Sexual Orientation Not on file documented as of this encounter Plan of Treatment Scheduled Referrals Name Type Priority Associated Diagnoses Order Schedule Referral to Comprehensive Breast Program Outpatient Referral STAT Mass of left breast, unspecified quadrant Ordered: 02/08/2022 documented as of this encounter Visit Diagnoses Diagnosis Mass of left breast, unspecified quadrant documented in this encounter Care Teams Education Manager Relationship Specialty Start Date End Date Navdeep Multani MD [address] [place] [address] PCP - General Family Medicine 02/08/22 documented as of this encounter
--- OUTSIDE RECORDS SUMMARY | 2024-08-17 08:14 | XMS_ITS | Encounter Summary ---
Author Organization [facility] Address [facility] [place] [address] Care Team Providers Care Outside Machinist Apprentice Name Role Phone Navdeep Multani MD Primary Care Provider [phone] Encounter Details Date Type Department Care Team (Latest Contact Info) Description 02/16/2022 8:24 AM EDT - 02/16/2022 11:59 PM EDT Hospital Encounter Mammography at [facility] [place] [address] Celia Yoo MD [facility] [place] [address] Mass of upper inner quadrant of left [...] Name Priority Date/Time Associated Diagnosis Comments MAMMO BREAST US LIMITED LEFT Routine 02/16/2022 9:33 AM EDT Mass of upper inner quadrant of left breast documented in this encounter Results * US Breast Limited [...] who have questions please contact the health care manager that requested your imaging first. ? Electronically signed by: Iris Simmons MD, [facility] ([phone]), at 02/16/2022 9:39 AM Narrative 02/16/2022 9:39 [...] breast documented in this encounter Care Teams Outside Machinist Apprentice Relationship Specialty Start Date End Date Navdeep Multani MD [address] [place] [address] PCP - General Family Medicine 02/08/22 documented as of this encounter
--- NOTE | 2024-08-17 08:15 | DI.RAD_ITS ---
Exam(s) XR PORTABLE CHEST AP EXAM: XR PORTABLE CHEST AP CLINICAL HISTORY: Chest heaviness. TECHNIQUE: 2D digital imaging was performed. COMPARISON: No exams were available for comparison FINDINGS: Single AP portable view. Heart size is upper normal. The mediastinum is not widened. Lungs are clear. No infiltrates nor obvious pleural effusions. IMPRESSION: No acute pulmonary findings on this single AP portable view of the chest. DATA REPOSITORY: RADIATION DOSE DELIVERED:
--- NOTE | 2024-08-17 08:22 | W.ED.GENAD ---
Discharge Plan Disposition Patient Disposition: Home Condition: Good Discharge Details Clinical Impression: Atrial fibrillation with RVR Primary Care Provider: Navdeep Multani ED Provider: Santos Doran Home Meds and New Rx's Prescriptions: New metoprolol tartrate 25 mg tablet 25 mg PO BID Qty: 60 2RF aspirin 81 mg capsule 81 mg PO DAILY Qty: 30 2RF No Action omega 6-wej-nxk-fish oil 900-1,400 mg capsule,delayed release(DR/EC) 1 cap PO DAILY meloxicam 15 mg tablet 15 mg PO DAILY Qty: 90 3RF Discharge Instructions Instructions: Atrial Fibrillation (DC) Additional Instructions: At this time you have a new diagnosis of atrial fibrillation. This is likely a component or the cause of the symptoms you have been having for the last few months. As we discussed together it is important to avoid any aggravates like caffeine, so please cut down on your caffeine intake with a goal of cutting out all caffeine. Please take the metoprolol as prescribed. This may cause some sensations of fatigue. Please take an 81 mg aspirin daily. Please follow-up closely with your primary care provider and java developer analyst for formal echo. If you notice any worsening of your symptoms, or any new symptoms such as vomiting, diarrhea, fever, chills, shortness of breath, chest pain, numbness, weakness, or fainting , please return immediately to the emergency department for reevaluation. Please follow up with your primary care provider as soon as possible for reassessment and reevaluation. As always, it was a pleasure participating in your medical care today. Stand Alone Forms: Work Release Referrals: Franca Minor MD [ [facility] STAFF PHYSICIAN] - Navdeep Multani MD [Primary Care Provider] - [facility] General Date/Time Provider Initiated Documentation: 08/17/24 08:07. HPI Narrative: This is a very pleasant 58-year-old male with no significant past medical history except for orthopedic injuries and subsequent surgeries, who presents today for evaluation of palpitations. 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 He went to the bench and sat down started feel somewhat better, he went back out on the rink shortly thereafter and again felt like he was about to pass out with some associated chest heaviness. He denies any significant chest pain. He took 325 aspirin, and came to the ER for further assessment. He denies any personal cardiac history. He is adopted, but no known history of sudden cardiac . He drinks alcohol only occasionally on the weekend. He has not drunk any today. He does not take any other additional medications except for meloxicam. He denies personal history of A-fib. He denies any IV or illicit drug use. No other complaints at this time. No other modifying factors. Related Data Home Medications ?Medication ?Instructions ?Recorded ?Confirmed omega 5-rrc-kpg-fish oil 900 1 cap PO DAILY 04/27/18 08/17/24 mg-1,400 mg capsule,delayed release meloxicam 15 mg tablet 15 mg PO DAILY #90 tabs 02/19/24 08/17/24 aspirin 81 mg capsule 81 mg PO DAILY #30 caps 08/17/24 metoprolol tartrate 25 mg tablet 25 mg PO BID #60 tabs 08/17/24 Previous Rx's ?Medication ?Instructions ?Recorded meloxicam 15 mg tablet 15 mg PO DAILY #90 tabs 02/19/24 aspirin 81 mg capsule 81 mg PO DAILY #30 caps 08/17/24 metoprolol tartrate 25 mg tablet 25 mg PO BID #60 tabs 08/17/24 Allergies Allergy/AdvReac Type Severity Reaction Status Date / Time No Known Allergies Allergy Verified 08/17/24 08:22 General Stated Complaint: Palpitatns BASSAM: 2 Exam Narrative Exam Narrative: 1.Const: Well-nourished, Well-developed, appearing stated age 2.Eyes: PERRL, no conjunctival injection, and symmetrical lids. 3.ENT: Atraumatic external nose and ears. Moist MM. Neck: Symmetric, trachea midline, No thyromegaly. 4.CVS: +S1/S2, Peripheral pulses 2+ and equal in all extremities. Brisk capillary refill in all extremities. 5.RESP: Unlabored respiratory effort. Clear to auscultation bilaterally. No wheezes rales or rhonchi 6.GI: Soft, Nontender/Nondistended, No hepatosplenomegaly. No guarding or rebound. 7.MSK: Normocephalic/Atraumatic, Extremities w/o deformity or ttp No cyanosis or clubbing, Normal movement of all extremities 8.Skin: Warm, Dry. No rashes or lesions. 9.Neuro: marinator II-XII grossly intact. Sensation grossly intact, no focal neurologic deficits. 10.Psych: (AAO) x3. Appropriate mood and affect Course Vital Signs Vital signs: Vital Signs Temperature 36.3 C L 08/17/24 08:07 Pulse 159 H 08/17/24 08:07 Respiratory Rate 14 08/17/24 08:07 Blood Pressure 118/82 08/17/24 08:07 Pulse Oximetry 97 08/17/24 08:07 Temperature 36.3 C L 08/17/24 08:07 Temperature Source Temporal Artery Scan 08/17/24 08:07 Pulse 159 H 08/17/24 08:07 Respiratory Rate 14 08/17/24 08:07 Blood Pressure 118/82 08/17/24 08:07 Blood Pressure Position Supine 08/17/24 08:07 Pulse Oximetry 97 08/17/24 08:07 Oxygen Delivery Method Room Air 08/17/24 08:07 Oxygen Flow Rate 0 08/17/24 08:07 Pain Level 0 08/17/24 08:07 Medical Decision Making This is a very pleasant 58-year-old male with no significant past medical history except for orthopedic injuries and subsequent surgeries, who presents today for evaluation of palpitations. 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 He went to the bench and sat down started feel somewhat better, he went back out on the rink shortly thereafter and again felt like he was about to pass out with some associated chest heaviness. He denies any significant chest pain. He took 325 aspirin, and came to the ER for further assessment. He denies any personal cardiac history. He is adopted, but no known history of sudden cardiac . He drinks alcohol only occasionally on the weekend. He has not drunk any today. He does not take any other additional medications except for meloxicam. He denies personal history of A-fib. He denies any IV or illicit drug use. No other complaints at this time. No other modifying factors. Exam demonstrates a well-appearing male, heart rate is in the 150s, blood pressure stable. Atrial fibrillation is noted on EKG. Symptoms appear consistent with A-fib with a rapid ventricular response. Will evaluate for potential causes including thyroid dysfunction, electrolyte abnormality or dehydration. We will start with 15 of diltiazem and a liter of normal saline. Will evaluate for cardiac ischemia, monitor closely and reassess. 8:40 AM The patient has intermittently come out of his atrial fibrillation with rapid ventricular response and is oscillating between A-fib with RVR in a sinus rhythm. He calculates to the lowest category for his [id number] 2 score risk. He would not benefit from anticoagulations as recommended by national guidelines at this stage. Additionally it is the weekend and there is no echo capability at the hospital. We had not yet given the Cardizem, and because of these factors, his low risk, his already improving symptomatology, the potential for discharge for outpatient echo, and the patient's preference to be at home, we will instead utilize metoprolol as a breaking agent with the hope to transition to an oral therapy. Will start with 2.5 mg of metoprolol and give every 5 minutes until symptoms improved. 1145 Patient was given 2.5 mg of metoprolol twice and had a gradual complete resolution of his A-fib with RVR. He slowly came down to a converted and rate controlled status. Blood pressure was slightly soft in the low 100s to high 90s for a while, but he also had not eaten all day. He was given food and he felt much better and his blood pressure came back to a normal level. Initial bedside ultrasound showed atrial fibrillation, no pericardial effusion or tamponade, mildly reduced ejection fraction. Laboratory workup showed no white count bandemia or left shift. Electrolytes normal, renal function stable. Serial troponins with 31, 34 and 42, which per high-sensitivity troponin pathway does enable rule out. proBNP was high at 2200 though. This was confirmed with bedside ultrasound showing a bit of a dilated atria particularly on the left, unable to completely visualize right. Thyroid function normal. Repeat echo after initial echo showed slight improvement of ejection fraction as the A-fib resolved. We did reach out to [facility] and I discussed the case with [facility] cardiology nurse practitioner Zarina, who recommends 25 mg of metoprolol twice daily, and 81 mg baby aspirin. We will place referral for close outpatient follow-up with PCP as well as cardiology Dr. Minor. We did get the patient up and ambulated him around the ED, he did well with no return of his A-fib. Of note the patient also states that he drinks a large 24 ounce cup of coffee every morning, and is noticed for the last few months that he feels quite fatigued in the morning shortly after the caffeine/coffee. I suspect this may very well have been a exacerbating component of his symptoms. I had a long discussion with the patient recommend cessation of caffeine over the next few days. He understands. Discussed red flags which return. I have extensively reviewed the treatment plan and discharge instructions with the patient. I have addressed all patient concerns at this time. The patient was made aware of what symptoms to monitor for that would warrant a return to the emergency department. Discussed the plan with the patient, they demonstrate verbal understanding and agreement with our assessment and plan at this time. The documentation in this chart was dictated using [employer] dictation software. Please excuse any dictation errors. FINDINGS: Lungs: Unremarkable. No consolidation. Pleural spaces: Unremarkable. No pleural effusion. No pneumothorax. Heart/Mediastinum: Unremarkable. No cardiomegaly. Bones/joints: Unremarkable. IMPRESSION: No acute findings. Thank you for allowing us to participate in the care of your patient. Dictated and Authenticated by: Carlie Navarrete MD 08/17/2024 9:46 AM Eastern Time ([place] & [place]) Quality:SDOH Health Related Social Needs: No Data to Display Critical Care Time Critical Care Time Critical Care Time: Yes Total Critical Care Time: 90 Attestation: Upon my evaluation, this patient had a high probability of imminent or life-threatening deterioration, which required my direct attention, intervention, and personal management. I have personally provided 90 minutes of critical care time exclusive of time spent on separately billable procedures. Time includes review of laboratory data, radiology results, discussion with consultants, and monitoring for potential decompensation. Interventions were performed as documented. PFSH All Active Problems (Updated 08/17/24 @ 12:37 by Santos Doran DO) Atrial fibrillation with RVR (Acute) History of arthroscopy of right shoulder (Acute ~11/04/22) Traumatic tear of right rotator cuff (Acute ~08/2022) Bilateral hip pain (Acute) Low back pain (Acute) Ganglion cyst (Acute) Encounter for screening colonoscopy (Acute) Adopted (Chronic) Medical History (Updated 08/17/24 @ 12:37 by Santos R Espinoza, DO) Normal colonoscopy (07/06/18) Dr Valdovinos, repeat 10 years Family History Son No problems noted. Son No problems noted. Son No problems noted. Daughter No problems noted. 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 Pets and animals: Yes Pets and animals: dog(s) Sexually active: Yes Do you think of yourself as: straight/heterosexual Current gender identity: male What is your relationship status?: How often do you talk on the phone with friends or family?: three or more times per week How often do you get together with friends or relatives?: three or more times per week How often do you attend roman catholic or confucianism services?: 1-3 times per year Do you belong to any clubs or organized social groups?: yes Panel score (0-1 are the most socially isolated patients): 3 What type of physical activity do you participate in: walking and bicycling Duration: 45-60 minutes/day Frequency: 5-6 times per week Maribeth/Jehovah'S Witness: Moravian Special maribeth needs: No Seatbelt use: always Helmet use: Yes Helmet use: always Drive intox or ride w/intox boat driver: No Do you feel safe at home: Yes Do you feel safe in your relationship?: Yes POCUS Exam (ED) Limited Cardiac Exam DATE OF EXAM: 08/17/24 TIME OF EXAM: 10:05 PROVIDER THAT PERFORMED THE STUDY: Santos Doran IS THIS A REPEAT EXAM DURING THIS ENCOUNTER: no REASON FOR EXAM: Syncope VISUALIZED STRUCTURES: Left atrium, Left ventricle, Right ventricle, Aortic valve, Mitral valve and Interventricular septum VIEW OBTAINED: Parasternal long-axis and Parasternal short-axis PERTINENT FINDINGS/IMPRESSION: LV dysfunction :mild DIFFERENTIAL DIAGNOSES: afib irregularity Exam complete
[2024-08-17 08:29] LABS: Abs Immature Grans 0.01 10^3/uL (0.0-0.06); Absolute Basophil Count 0.03 10^3/uL (0.0-0.2); Absolute Eosinophil Count 0.18 10^3/uL (0.0-0.7); Absolute Lymphocyte Count 1.19 10^3/uL (1.2-3.4); Absolute Monocyte Count 0.41 10^3/uL (0.1-0.8); Absolute Neutrophil Count 4.97 10^3/uL (1.2-6.7); Basophils % 0.4 %; Eosinophils % 2.7 %; HCT 44.9 % (40.0-50.0); Immature Grans % 0.1 %; Lymphocytes % 17.5 %; MCH 29.6 pg (27.0-33.0); MCHC 33.4 % (32.0-36.0); MCV 89 fL (80-95); MPV 9.2 fL (8.0-11.0); Neutrophils % 73.3 %; Platelet Count 194 10^3/uL (130-400); RBC 5.06 10^6/uL (4.36-5.78); RDW 13.1 % (11.8-14.1); RDW-SD 42.8 fL; WBC 6.79 10^3/uL (4.4-10.8)
[2024-08-17] MEDS: Normal Saline 1,000 ML 1000 ML IV (08:30)
[2024-08-17 08:42] LABS: PTT Activated 24.3 sec (20.6-30.2); Prothrombin Time 10.3 sec (9.1-11.1)
[2024-08-17] MEDS: Metoprolol 5 MG/5 ML VIAL IVP (08:44)
[2024-08-17 08:54] LABS: ALT 59 U/L (16-63); AST 45 U/L (15-37); Albumin 3.8 g/dL (3.4-5.0); Alkaline Phosphatase 63 U/L (46-116); Anion Gap 7.6 mmol/L (3-11); BUN 33 mg/dL (7-18); Bilirubin, Total 0.52 mg/dL (0.2-1.0); CO2 23.4 mmol/L (21.0-32.0); CREATININE 1.3 mg/dL (0.70-1.30); Calcium 8.9 mg/dL (8.5-10.1); Chloride 109 mmol/L (98-107); Estimated GFR 64.07 (mL/min/1.73m2); Glucose 103 mg/dL (74-106); NT-proBNP 2210 pg/mL (<300); Potassium 4.1 mmol/L (3.5-5.1); Sodium 140 mmol/L (136-145); TSH (W/Ref FT4) 1.76 uIU/mL (0.36-3.74); Total Protein 6.9 g/dL (6.4-8.2); Troponin I 31 ng/L (<or=76)
[2024-08-17] MEDS: Metoprolol 5 MG/5 ML VIAL (09:09)
[2024-08-17] MEDS: Atenolol 25 MG TAB PO (09:34)
--- NOTE | 2024-08-17 09:46 | DI.VRAD_ITS ---
PROCEDURE INFORMATION: Exam: XR Chest Exam date and time: 08/17/2024 9:33 AM Age: 58 years old Clinical indication: Other: Chest heaviness \T\ palpatations TECHNIQUE: Imaging protocol: Radiologic exam of the chest. Views: 1 view. COMPARISON: CR XR SHOULDER RT COMPLETE 2+V 10/11/2022 2:18 PM FINDINGS: Lungs: Unremarkable. No consolidation. Pleural spaces: Unremarkable. No pleural effusion. No pneumothorax. Heart/Mediastinum: Unremarkable. No cardiomegaly. Bones/joints: Unremarkable. IMPRESSION: No acute findings. Dictated and Authenticated by: Carlie Navarrete MD. Orderin Espinoza Graham MD
[2024-08-17 09:50] LABS: Troponin I 34 ng/L (<or=76)
[2024-08-17] MEDS: Normal Saline 500 ML IV (09:55)
[2024-08-17 11:32] LABS: Troponin I 42 ng/L (<or=76)
--- NOTE | 2024-08-17 11:39 | NUR.NOTE ---
patient was given turkey sandwich, crackers, peanut butter and water
[2024-08-17] MEDS: Metoprolol 25 MG TAB PO (12:47)
== END 2024-08-17 12:51 | disposition home or self-care (01) ==
PROVIDERS: Emergency Provider Student in an Organized Health Care Education/Training Program; PCP Family Medicine
DX: I48.91 Unspecified atrial fibrillation (principal); Z87.891 Personal history of nicotine dependence
CPT/HCPCS: 36415; 80053; 93005; 93308; 96361; 96374; 99284; 71045; 83880; 84443; 84484; 85025; 85610; 85730; 93010

== ENCOUNTER 2024-08-19 09:51 | Outpatient (CLI) | payer OTHER, SELFPAY ==
--- NOTE | 2024-08-19 09:45 | RT.EKG_ITS ---
APPROVED REPORT Exam: Resting ECG Reason for Exam: afib Patient Location: O HR:83 bpm ECG Measurements Heart Rate 83 AXIS MD 180 P 62 QRSd 122 QRS -33 QT 421 T 100 QTc 495 Conclusion Sinus rhythm...normal P axis, V-rate 50- 99 Ventricular bigeminy...bigeminy string>4 w/ V complexes Left atrial enlargement...P, P'>60mS, <-0.15mV V1 Left ventricular hypertrophy...multiple LVH criteria Nonspecific T abnormalities, lateral leads...T <-0.10mV, I aVL V5 V6
--- NOTE | 2024-08-19 17:24 | W.PC.ACHO ---
Registration Status: Primary Language: Preferred Language: Medical / Surgical History (Last Reviewed 11/04/22 @ 06:23 by Caleb Kathleen) Normal colonoscopy (07/06/18) Allergies No Known Allergies Allergy (Verified 08/19/24 11:20) v v v v v v v v v Sending and/or Receiving Nurses: Please use comment section below to note any information pertinent to the patient hand-off not included above. Information / Comments: Report received from: Onelia Rn at 1724, first call to ED 1775 but RN unavailable for report
== END 2024-08-19 09:52 | disposition home or self-care (01) ==
LOC: DI.CM 09:52
PROVIDERS: PCP Family Medicine; Visit Provider Nurse Practitioner Family
DX: I48.91 Unspecified atrial fibrillation (principal)
CPT/HCPCS: 93010

== ENCOUNTER 2024-08-19 10:28 | Inpatient (IN) | payer OTHER, SELFPAY ==
[2024-08-19] VITALS (69 sets, daily range): BP systolic 95–148; BP diastolic 61–104; PULSE 30–97; RESP 11–24; TEMP 36.2–36.5; O2SAT 93–100
--- NOTE | 2024-08-19 10:30 | RT.EKG_ITS ---
APPROVED REPORT Exam: Resting ECG Reason for Exam: arrhythmia Patient Location: E HR:78 bpm ECG Measurements Heart Rate 78 AXIS FL 187 P 64 QRSd 120 QRS -25 QT 452 T 89 QTc 517 Conclusion Sinus rhythm 78 PVCs LVH no stemi
--- OUTSIDE RECORDS SUMMARY | 2024-08-19 10:40 | XMS_ITS | Encounter Summary ---
Author Organization [facility] Address [address] [place] [address] Care Team Providers Care Drawbench Operator Helper Name Role Phone Unavailable Primary Care Provider Unavailabl e Encounter Details Date Type Department Care Team (Late st Contact Info) Description 09/24/2021 Lab Requisition [facility] Pathology & Laboratory Medicine - [facility] [address] [place] [address] Outr Resulting Lab, Provider Social History Tobacco [...] 0.0 - 3.5 ng/mL 09/24/2021 21:06 EDT [facility] Blood VENOUS BLOOD / Unknown 09/24/2021 7:02 EDT 09/24/2021 18:59 EDT Narrative [facility] - 09/24/2021 21:06 EDT NOTE: Serum PSA concentration should not be interpreted as absolute evidence for the presence or absence of malignant disease. Assayed on Siemens ADVIA Centaur XPT using chemiluminescent technology.??Values obtained by using different assay methods cannot be used interchangeably. us Provider Outr Resulting Lab CHEMISTRY & BLOOD GA S ORDERABLES Final Result [facility] [address] [place] [address] documented in this encounter Visit Diagnoses Not on filedocumented in this encounter
--- OUTSIDE RECORDS SUMMARY | 2024-08-19 10:40 | XMS_ITS | Encounter Summary ---
Author Organization [facility] Address [address] [place] [address] Care Team Providers Care Brazing Furnace Feeder Name Role Phone Unavailable Primary Care Provider Unavailabl e Encounter Details Date Type Department Care Team (Late st Contact Info) Description 09/08/2022 Lab Requisition [facility] Pathology & Laboratory Medicine - [facility] [address] [place] [address] Outr Resulting Lab, Provider Social History Tobacco [...] PSA 1.1 <=3.5 ng/mL 09/08/2022 18:53 EST [facility] Blood VENOUS BLOOD / Unknown 09/07/2022 16:12 EST 09/08/2022 17:12 EST Narrative [facility] - 09/08/2022 18:53 EST NOTE: Serum PSA concentration should not be interpreted as absolute evidence for the presence or absence of malignant disease. Assayed on Siemens ADVIA Centaur XPT using chemiluminescent technology.??Values obtained by using different assay methods cannot be used interchangeably. us Provider Outr Resulting Lab CHEMISTRY & BLOOD GA S ORDERABLES Final Result [facility] [address] [place] [address] documented in this encounter Visit Diagnoses Not on filedocumented in this encounter
--- OUTSIDE RECORDS SUMMARY | 2024-08-19 10:40 | XMS_ITS | Clinical Summary ---
Author Organization [facility] Address [address] [place] [address] Care Team Providers Care Corporate General Manager Name Role Phone Unavailable Primary Care Provider [...]
--- OUTSIDE RECORDS SUMMARY | 2024-08-19 10:40 | XMS_ITS | Referral Summary ---
Author Organization [facility] Address [address] [place] [address] Care Team Providers Care Brusher Name Role Phone Unavailable Primary Care Provider Unavailabl e Social History Tobacco Use Types Packs/Day Years Used Date Smoking Tobacco: Never Assessed Sex and Gender Information Value Date Recorded Sex Assigned at Not on file Legal Sex Male 13:08 EDT Gender Identity Not on file Sexual Orientation Not on file Plan of Treatment Not on file
--- OUTSIDE RECORDS SUMMARY | 2024-08-19 10:40 | XMS_ITS | Encounter Summary ---
Author Organization [facility] [place] [address] Care Team Providers Care People Greeter Name Role Phone Navdeep Multani MD Primary Care Provider +1 [phone] Encounter Details Date Type Department Care Team (Late st Contact Info) Description 08/17/2024 Telephone Cardiology at [address] [place] [id number] Catherine Tran APRN [facility] [place] [address] Social History Tobacco Use Types Packs/Day Years Used Date Smoking Tobacco: Former Comments:pt quit 10 plus yrs ago Sex and Gender Information Value Date Recorded Sex Assigned at Not on file Gender Identity Not on file Sexual Orientation Not on file documented as of this encounter Miscellaneous Notes * Telephone Encounter - Catherine Tran APRN - 08/17/2024 11:25 AM EST Images from the original note were not included. 08/17/2024 Mark Sandoval Initial Contact Date: 08/17/2024 Initial contact time: 11:25 AM Referring Provider: Dr. Santos Doran Patient Location: [facility] ED Past Medical History: No pertinent PMH Presenting Symptoms per OSH: Patient presents to [facility] ED with complaints of shortness of breath and near syncope while ice skating. Patient states while he was ice skating he felt lightheadedness and shortness of breath. He sat down and bystander took pulse which was found to be rapid. Symptoms and rapid pulse rate subsided and patient continued ice skating and same symptoms reoccurred which prompted ED evaluation. Patient was found to be in atrial fibrillation with RVR, HR 140s; confirmed by EKG. No history of atrial fibrillation. Patient spontaneously converted to NSR without medication but atrial fibrillation returned. Metoprolol 5 mg IV x 2 given and patient converted to sinus rhythm with trigeminy. HR 62. SBP ~90sand asymptomatic since conversion to sinus rhythm. No evidence of heart failure on reported examination. Cardiology consulted for discharge medication recommendations given SBP 90s. Pertinent Diagnostic Findings: Electrolytes WNL H & H WNL EKG 08/17/24 0810 Atrial fibrillation with RVR, HR 142 EKG 08/17/24 0936 Sinus rhythm with trigeminy, HR 62 Past cardiac studies: N/A OSH Interventions: IV metoprolol 5 mg x 2 1L NSS bolus Plan: Patient presented to [facility] with shortness of breath and near syncope found to be in new atrial fibrillation with RVR, HR 140s. He spontaneously converted to sinus rhythm but returned to atrial fibrillation which was chemically converted with metoprolol 5 mg IV x 2. Repeat EKG shows sinus rhythm withtrigeminy. He is euvolemic on examination with no reported evidence of heart failure. He was given 1L NS bolus. His electrolytes and H&H are WNL. His SBP ~90 ; asymptomatic. Given his hypotension, cardiology was consulted for medication recommendations for management of new atrial fibrillation.[id number] 0 and agree with daily ASA 81 mg daily although discussed with Dr. Doran that evidence-based research shows that aspirin alone is not sufficient for stroke prevention. I recommend a walk test to monitor for symptoms related to hypotension. Reassuringly, his MAP remains well-above 65 with his blood pressure trend. We discussed initiation of maintenance dose of daily digoxin given that this will not have an effect on blood pressure. Dr. Doran is not confident that this patient will have close outpatient followup as he does not have PCP. If walk test successful and patient is without symptoms, I recommend metoprolol tartrate 25 mg BID for it's shorter duration of action. If hypotension develops, metoprolol tartrate will wear off morequickly. Recommend outpatient follow up with cardiology with echocardiogram and Ziopatch monitor. Above recommendations were based on my discussion with Dr. Doran; I have not personally interviewed or examined this patient. Advised to call the transfer center back with any changes in the patient condition. Catherine Tran APRN Pager #: [phone] 08/17/2024 11:25 AM documented in this encounter Plan of Treatment Not on file documented as of this encounter Visit Diagnoses Not on filedocumented in this encounter Care Teams People Greeter Relationship Specialty Start Date End Date Navdeep Multani MD [address] [place] [address] PCP - General Family Medicine 02/08/22 documented as of this encounter
--- OUTSIDE RECORDS SUMMARY | 2024-08-19 10:40 | XMS_ITS | Clinical Summary ---
Author Organization [facility] [place] [address] Care Team Providers Care Hardwood Sawyer Name Role Phone Navdeep Multani MD Primary Care Provider [phone] [phone] Allergies No known active allergies Medications Medication Sig Dispensed Refills Start Date End Date Status multivitamin Capsule Take 1 capsule by mouth daily. Active FISH OIL-DHA-EPA ORAL Take by mouth. Active ZINC ORAL Take by mouth. Active Active Problems No known active problems Encounters Date Type Department Care Team Description 08/17/2024 Telephone Cardiology at [address] [phone] Catherine Tran, BUGGY LOADER 08/17/2024 [place] [phone] from Last 3 Months Social History Tobacco Use Types Packs/Day Years [...] f 1 - Influenza standard series) 03/03/2024 Procedures Procedure Name Priority Date/Time Associated Diagnosis Comments MISC EXTERNAL CARDIOLOGY RESULT Routine 08/17/2024 11:08 AM EST from Last 3 Months Results * External Cardiology Result (08/17/2024 11:08 AM EST) Anatomical Region Laterality Modality Other Historical Provider EXTERNAL CARDIOLO GY RESULT from Last 3 Months Care Teams Hardwood Sawyer Relationship Specialty Start Date End Date Navdeep Multani MD [address] [place], [place] [id number] PCP - General Family Medicine 02/08/22
--- OUTSIDE RECORDS SUMMARY | 2024-08-19 10:40 | XMS_ITS | Encounter Summary ---
Author Organization [facility] [place] [address] Care Team Providers Care Ward Supervisor Name Role Phone Navdeep Multani MD Primary Care Provider [phone] [phone] Encounter Details Date Type Department Care Team (Late st Contact Info) Description 08/17/2024 External [place] [phone] Social History Tobacco Use Types Packs/Day Years [...] CARDIOLOGY RESULT Routine 08/17/2024 11:08 AM EST documented in this encounter Results * External Cardiology Result (08/17/2024 11:08 AM EST) Anatomical Region Laterality Modality Other Historical Provider EXTERNAL CARDIOLO GY RESULT documented in this encounter Visit Diagnoses Not on filedocumented in this encounter Care Teams Ward Supervisor Relationship Specialty Start Date End Date Navdeep Multani MD [address] [place] [address] PCP - General Family Medicine 02/08/22 documented as of this encounter
--- OUTSIDE RECORDS SUMMARY | 2024-08-19 10:41 | XMS_ITS | Encounter Summary ---
Author Organization [facility] [place] [address] Care Team Providers Care Supervisor Ticket Sales Name Role Phone Navdeep Multani MD Primary Care Provider [phone] [phone] Reason for Visit * Reason Comments Establish Care * Consultation (Urgent) - Closed Specialty Diagnoses / Procedures Referred By Reyna t Referred To Contact Hematology and Oncology Diagnoses Mass of left breast, unspecified quadrant Alexa Alcazar, PA [address] [place] [address] [facility] [address] [place] [address] Referral ID Status Reason Start Date Expiration Date V isits Requested Visits Authorized [id number] Closed Consult, Test & Treat PCP Updated and/or Approved 02/08/2022 02/08/2023 6 6 Encounter Details Date Type Department Care Team (Late st Contact Info) Description 02/16/2022 8:00 AM EDT Office [place] [address] Barbara Ryan APRN [facility] [place] [address] Mass of upper inner quadrant of left [...] this encounter Progress Notes * Barbara Ryan, COCONUT CANDY MAKER - 02/16/2022 8:00 AM EDT Mark Sandoval [...] breast documented in this encounter Care Teams Supervisor Ticket Sales Relationship Specialty Start Date End Date Navdeep Multani MD [address] [place] [address] PCP - General Family Medicine 02/08/22 documented as of this encounter
--- OUTSIDE RECORDS SUMMARY | 2024-08-19 10:41 | XMS_ITS | Encounter Summary ---
[place] [address] Care Team Providers Care Research Associate Policy Name Role Phone Navdeep Multani MD Primary Care Provider +1 [phone] Reason for Referral * Consultation (Urgent) - Closed Specialty Diagnoses / Procedures Referred By Reyna farrell Referred To Contact Hematology and Oncology Diagnoses Mass of left breast, unspecified quadrant Alexa Alcazar PA [facility] [place] [address] [facility] [address] [place] [address] Referral ID Status Reason Start Date Expiration Date V isits Requested Visits Authorized [id number] Closed Consult, Test & Treat PCP Updated and/or Approved 02/08/2022 02/08/2023 6 6 Encounter Details Date Type Department Care Team (Late st Contact Info) Description 02/08/2022 Transcribe Orders eDH Incoming Referrals [phone] Alexa Alcazar PA [facility] [address] [place], [place] [id number] Mass of left breast, unspecified quadrant Social [...] quadrant documented in this encounter Care Teams Research Associate Policy Relationship Specialty Start Date End Date Navdeep Multani MD [address] [place] [address] PCP - General Family Medicine 02/08/22 documented as of this encounter
--- OUTSIDE RECORDS SUMMARY | 2024-08-19 10:41 | XMS_ITS | Encounter Summary ---
Author Organization [facility] [place] [address] Care Team Providers Care Hairspring Cutter Name Role Phone Navdeep Multani MD Primary Care Provider +1 -[phone] Encounter Details Date Type Department Care Team (Late st Contact Info) Description 02/09/2022 Orders Only [place] [address] Barbara Ryan APRN [facility] [place] [address] Mass of upper inner quadrant of left [...] breast documented in this encounter Care Teams Hairspring Cutter Relationship Specialty Start Date End Date Navdeep Multani MD [address] [place] [address] PCP - General Family Medicine 02/08/22 documented as of this encounter
--- OUTSIDE RECORDS SUMMARY | 2024-08-19 10:41 | XMS_ITS | Encounter Summary ---
Author Organization [facility] Address [facility] [place] [address] Care Team Providers Care Costumed Character Entertainer Name Role Phone Navdeep Multani MD Primary Care Provider +1 [phone] Encounter Details Date Type Department Care Team (Latest Contact Info) Description 02/16/2022 8:24 AM EDT - 02/16/2022 11:59 PM EDT Hospital Encounter Mammography at [facility] [place] [address] Celia Yoo MD [facility] [place] [address] Mass of upper inner quadrant of left [...] who have questions please contact the health child care specialist that requested your imaging first. ? Narrative [...] breast documented in this encounter Care Teams Costumed Character Entertainer Relationship Specialty Start Date End Date Navdeep Multani MD [address] [place] [address] PCP - General Family Medicine 02/08/22 documented as of this encounter
--- OUTSIDE RECORDS SUMMARY | 2024-08-19 10:41 | XMS_ITS | Encounter Summary ---
Author Organization [facility] Address [facility] [place] [address] Care Team Providers Care Tiler Name Role Phone Navdeep Multani MD Primary Care Provider +1 -[phone] Encounter Details Date Type Department Care Team (Latest Contact Info) Description 02/16/2022 8:24 AM EDT - 02/16/2022 11:59 PM EDT Hospital Encounter Mammography at [facility] [place] [address] Celia Yoo MD [facility] [place] [address] Mass of upper inner quadrant of left [...] who have questions please contact the health director critical care that requested your imaging first. [...] breast documented in this encounter Care Teams Tiler Relationship Specialty Start Date End Date Navdeep Multani MD [address] [place] [address] PCP - General Family Medicine 02/08/22 documented as of this encounter
[2024-08-19 11:42] LABS: Abs Immature Grans 0.02 10^3/uL (0.0-0.06); Absolute Basophil Count 0.02 10^3/uL (0.0-0.2); Absolute Eosinophil Count 0.21 10^3/uL (0.0-0.7); Absolute Lymphocyte Count 2.07 10^3/uL (1.2-3.4); Absolute Monocyte Count 0.64 10^3/uL (0.1-0.8); Basophils % 0.2 %; Eosinophils % 2.3 %; HCT 45.4 % (40.0-50.0); HGB 15.3 g/dL (13.5-17.5); Immature Grans % 0.2 %; Lymphocytes % 22.8 %; MCH 29.8 pg (27.0-33.0); MCHC 33.7 % (32.0-36.0); MCV 89 fL (80-95); MPV 9.4 fL (8.0-11.0); Monocytes % 7.1 %; Neutrophils % 67.4 %; Platelet Count 200 10^3/uL (130-400); RBC 5.13 10^6/uL (4.36-5.78); RDW 13.1 % (11.8-14.1); RDW-SD 42.8 fL; WBC 9.06 10^3/uL (4.4-10.8)
--- NOTE | 2024-08-19 11:50 | DI.RAD_ITS ---
Exam(s) XR PORTABLE CHEST AP EXAM: XR PORTABLE CHEST AP CLINICAL HISTORY: Chest pain TECHNIQUE: 2D digital imaging was performed of the chest. Two images were obtained. AP views were obtained. COMPARISON: CR,XR XR PORTABLE CHEST AP from 08/17/2024 FINDINGS: MEDIASTINUM: Normal. HEART: Normal. PULMONARY VASCULATURE: Normal. LUNGS: Clear. PLEURAL SPACE: No pleural effusion or pneumothorax. BONE:Within normal limits for the patient's age. OTHER FINDINGS:Normal. IMPRESSION: No acute pulmonary findings. DATA REPOSITORY: RADIATION DOSE DELIVERED:
[2024-08-19 12:07] LABS: ALT 158 U/L (16-63); AST 56 U/L (15-37); Albumin 3.8 g/dL (3.4-5.0); Alkaline Phosphatase 64 U/L (46-116); Anion Gap 8.5 mmol/L (3-11); BUN 29 mg/dL (7-18); Bilirubin, Total 1.29 mg/dL (0.2-1.0); CO2 22.5 mmol/L (21.0-32.0); Calcium 8.9 mg/dL (8.5-10.1); Chloride 110 mmol/L (98-107); Estimated GFR 87.78 (mL/min/1.73m2); Glucose 78 mg/dL (74-106); Magnesium 2.1 mg/dL (1.8-2.4); NT-proBNP 7084 pg/mL (<300); Potassium 4.3 mmol/L (3.5-5.1); Sodium 141 mmol/L (136-145); TSH 2.86 uIU/mL (0.36-3.74); Total Protein 6.9 g/dL (6.4-8.2); Troponin I 40 ng/L (<or=76)
[2024-08-19 13:30] LABS: Troponin I 39 ng/L (<or=76)
[2024-08-19] MEDS: Furosemide 100 MG/10 ML VIAL 80 MG IVP (14:50)
[2024-08-19 15:25] LABS: Troponin I 43 ng/L (<or=76)
--- NOTE | 2024-08-19 15:58 | W.PM.HP.N ---
Date of service: 08/19/24 Time of Service: 15:58 Assessment and Plan Assessment and plan (1) Heart failure with reduced ejection fraction: Status: Acute Assessment and plan: EF 20%, Case was discussed with cardiology at [facility] recommendations are to continue diuresis for now. Received 80 mg of IV Lasix in the emergency department, follow electrolytes closely reduce Lopressor to 12.5 mg twice daily. They have accepted him in transfer and are awaiting bed acceptance. He will be admitted to the medical surgical unit on telemetry while bed acceptance pending. Monitor intake and output, monitor daily weights, serial troponins have remained negative and flat. No further surveillance at this time (2) Atrial fibrillation with RVR: Status: Acute Assessment and plan: rate controlled on lopressor recommendations to reduce dose to 12.5 mg bid continue asa Review of Systems All systems reviewed & are unremarkable except as noted in HPI and below PFSH All Active Problems (Updated 08/19/24 @ 16:40 by Effie Fleming MD) Heart failure with reduced ejection fraction (Acute) Atrial fibrillation with RVR (Acute) History of arthroscopy of right shoulder (Acute ~11/04/22) Traumatic tear of right rotator cuff (Acute ~08/2022) Bilateral hip pain (Acute) Low back pain (Acute) Ganglion cyst (Acute) Encounter for screening colonoscopy (Acute) Adopted (Chronic) Medical History (Updated 08/19/24 @ 16:40 by Effie Fleming MD) Normal colonoscopy (07/06/18) Dr Valdovinos, repeat 10 years Family History Son No problems noted. Son No problems noted. Son No problems noted. Daughter No problems noted. 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 Pets and animals: Yes Pets and animals: dog(s) Sexually active: Yes Do you think of yourself as: straight/heterosexual Current gender identity: male What is your relationship status?: How often do you talk on the phone with friends or family?: three or more times per week How often do you get together with friends or relatives?: three or more times per week How often do you attend sikh or jainism services?: 1-3 times per year Do you belong to any clubs or organized social groups?: yes Panel score (0-1 are the most socially isolated patients): 3 What type of physical activity do you participate in: walking and bicycling Duration: 45-60 minutes/day Frequency: 5-6 times per week Maribeth/Samaritan: Hindu Special maribeth needs: No Seatbelt use: always Helmet use: Yes Helmet use: always Drive intox or ride w/intox trencher driver: No Do you feel safe at home: Yes Do you feel safe in your relationship?: Yes 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 Allergies and Home Medications Allergies Allergy/AdvReac Type Severity Reaction Status Date / Time No Known Allergies Allergy Verified 08/19/24 11:20 Home Medications ?Medication ?Instructions ?Recorded ?Confirmed ?Type omega 3-kwr-pwu-fish oil 900 1 cap PO DAILY 04/27/18 08/19/24 History mg-1,400 mg capsule,delayed release meloxicam 15 mg tablet 15 mg PO DAILY #90 tabs 02/19/24 08/19/24 Rx aspirin 81 mg capsule 81 mg PO DAILY #30 caps 08/17/24 08/19/24 Rx metoprolol tartrate 25 mg tablet 25 mg PO BID #60 tabs 08/17/24 08/19/24 Rx Exam Narrative Exam Narrative: Well-appearing male of stated age in no acute distress head is atraumatic eyes nonicteric noninjected oral mucosa is moist neck full range of motion cardiovascular regular rate irregular rhythm sinus rhythm with PVC's. Results Labs 08/20/24 06:15 08/20/24 06:15 Labs: Laboratory Results - last 24 hr 08/19/24 08/19/24 08/19/24 11:35 12:35 14:45 WBC 9.06 RBC 5.13 Hgb 15.3 Hct 45.4 MCV 89 MCH 29.8 MCHC 33.7 RDW 13.1 Plt Count 200 MPV 9.4 Immature Gran % 0.2 Neutrophils % 67.4 Lymphocytes % 22.8 Monocytes % 7.1 Eosinophils % 2.3 Basophils % 0.2 Nucleated RBC % 0.0 Absolute Neutrophils 6.10 Absolute Lymphocytes 2.07 Absolute Monocytes 0.64 Absolute Eosinophils 0.21 Absolute Basophils 0.02 Sodium 141 Potassium 4.3 Chloride 110 H Carbon Dioxide 22.5 Anion Gap 8.5 BUN 29 H Creatinine 1.0 Est GFR (CKD-EPI 2020) 87.78 Glucose 78 Calcium 8.9 Magnesium 2.1 Total Bilirubin 1.29 H AST 56 H ALT 158 H Alkaline Phosphatase 64 Troponin I 40 39 43 NT-Pro-B Natriuret Pep 7084 H Total Protein 6.9 Albumin 3.8 TSH 2.86 Last Vital Signs Temp 36.4 C L 08/19/24 11:13 Pulse 77 08/19/24 15:03 Resp 18 08/19/24 15:40 BP 148/83 H 08/19/24 15:31 Pulse Ox 97 08/19/24 15:40 Time Spent Time spent with Patient: 55-74 minutes Time was spent: preparing to see the patient(eg.review tests), obtaining and/or reviewing separately otained hiistory, ordering medications,tests, procedures, referring, communicating with other health inspector health care facilities, indepentently interpreting results and counseling the patient
--- NOTE | 2024-08-19 16:34 | ED.GENADUL_ITS ---
Discharge Plan Disposition Patient Disposition: Admit to [facility] Condition: Fair Discharge Details Chief Complaint: Chest Pain Clinical Impression: Heart failure with reduced ejection fraction Primary Care Provider: Navdeep Multani ED Provider: Effie Fleming Home Meds and New Rx's Prescriptions: No Action omega 8-kxt-lxh-fish oil 900-1,400 mg capsule,delayed release(DR/EC) 1 cap PO DAILY meloxicam 15 mg tablet 15 mg PO DAILY Qty: 90 3RF metoprolol tartrate 25 mg tablet 25 mg PO BID Qty: 60 2RF aspirin 81 mg capsule 81 mg PO DAILY Qty: 30 2RF HPI General Date/Time Provider Initiated Documentation: 08/19/24 10:30 . Limitations to Documentation: no limitations . Information obtained by: patient, family and old records reviewed . HPI Narrative: 58-year-old gentleman without significant past medical history but recent diagnosis of atrial fibrillation presents for evaluation of worsening shortness of breath. The patient reports that he was seen on Monday after becoming symptomatic while playing hockey. He was evaluated in the ER and determined to have new onset atrial fibrillation with RVR. He was rate controlled at the time of evaluation and discharge, he was sent home to start metoprolol. He reports just not feeling great since then, having some vague chest discomfort without chest pain. He reports that he has some difficulty with breathing particularly at night. He states that he cannot get comfortable or lay flat. He states that he wakes up gasping for air. He denies any known medical problems. He denies any cough. He denies any drug use. He reports occasional alcohol use. Related Data Home Medications ?Medication ?Instructions ?Recorded ?Confirmed omega 3-cfm-ptr-fish oil 900 1 cap PO DAILY 04/27/18 08/19/24 mg-1,400 mg capsule,delayed release meloxicam 15 mg tablet 15 mg PO DAILY #90 tabs 02/19/24 08/19/24 aspirin 81 mg capsule 81 mg PO DAILY #30 caps 08/17/24 08/19/24 metoprolol tartrate 25 mg tablet 25 mg PO BID #60 tabs 08/17/24 08/19/24 Previous Rx's ?Medication ?Instructions ?Recorded meloxicam 15 mg tablet 15 mg PO DAILY #90 tabs 02/19/24 aspirin 81 mg capsule 81 mg PO DAILY #30 caps 08/17/24 metoprolol tartrate 25 mg tablet 25 mg PO BID #60 tabs 08/17/24 Allergies Allergy/AdvReac Type Severity Reaction Status Date / Time No Known Allergies Allergy Verified 08/19/24 11:20 General Stated Complaint: Chest Pain BASSAM: 2 Exam Narrative Exam Narrative: Review of Systems: All systems reviewed & are unremarkable except as noted in HPI and below Well-developed, no acute distress NCAT PERRL, normal conjunctiva RRR no murmur Unlabored respiratory effort clear bilaterally no crackles Nondistended abdomen Extremities w/o edema Course Vital Signs Vital signs: Vital Signs Temperature 36.4 C L 08/19/24 11:13 Pulse 30 L 08/19/24 11:13 Respiratory Rate 12 08/19/24 11:13 Pulse Oximetry 97 08/19/24 11:13 Temperature 36.4 C L 08/19/24 11:13 Temperature Source Oral 08/19/24 11:13 Pulse 77 08/19/24 15:03 Pulse 87 08/19/24 15:40 Respiratory Rate 18 08/19/24 15:40 Respiratory Effort Normal, Non-Labored 08/19/24 11:27 Respiratory Depth Normal 08/19/24 11:27 Respiratory Pattern Normal 08/19/24 11:27 Blood Pressure 148/83 H 08/19/24 15:31 Blood Pressure Mean 102 08/19/24 15:31 Blood Pressure Position Sitting 08/19/24 11:13 Pulse Oximetry 97 08/19/24 15:40 Oxygen Delivery Method Room Air 08/19/24 11:13 Oxygen Flow Rate 0 08/19/24 11:13 Pain Level 5 08/19/24 14:50 Lab/Test Results Lab/Test Results: Laboratory Tests Range/Units 08/19/24 08/19/24 08/19/24 11:35 12:35 14:45 WBC (4.4-10.8) 10^3/uL 9.06 RBC (4.36-5.78) 10^6/uL 5.13 Hgb (13.5-17.5) g/dL 15.3 Hct (40.0-50.0) % 45.4 MCV (80-95) fL 89 MCH (27.0-33.0) pg 29.8 MCHC (32.0-36.0) % 33.7 RDW (11.8-14.1) % 13.1 Plt Count (130-400) 10^3/uL 200 MPV (8.0-11.0) fL 9.4 Immature Gran % % 0.2 Neutrophils % % 67.4 Lymphocytes % % 22.8 Monocytes % % 7.1 Eosinophils % % 2.3 Basophils % % 0.2 Nucleated RBC % (0.0-0.3) % 0.0 Absolute Neutrophils (1.2-6.7) 10^3/uL 6.10 Absolute Lymphocytes (1.2-3.4) 10^3/uL 2.07 Absolute Monocytes (0.1-0.8) 10^3/uL 0.64 Absolute Eosinophils (0.0-0.7) 10^3/uL 0.21 Absolute Basophils (0.0-0.2) 10^3/uL 0.02 Sodium (136-145) mmol/L 141 Potassium (3.5-5.1) mmol/L 4.3 Chloride (98-107) mmol/L 110 H Carbon Dioxide (21.0-32.0) mmol/L 22.5 Anion Gap (3-11) mmol/L 8.5 BUN (7-18) mg/dL 29 H Creatinine (0.70-1.30) mg/dL 1.0 Est GFR (CKD-EPI 2020) (mL/min/1.73m2) 87.78 Glucose (74-106) mg/dL 78 Calcium (8.5-10.1) mg/dL 8.9 Magnesium (1.8-2.4) mg/dL 2.1 Total Bilirubin (0.2-1.0) mg/dL 1.29 H AST (15-37) U/L 56 H ALT (16-63) U/L 158 H Alkaline Phosphatase (46-116) U/L 64 Troponin I (<or=76) ng/L 40 39 43 NT-Pro-B Natriuret Pep (<300) pg/mL 7084 H Total Protein (6.4-8.2) g/dL 6.9 Albumin (3.4-5.0) g/dL 3.8 TSH (0.36-3.74) uIU/mL 2.86 Medical Decision Making Emergent evaluation of worsening shortness of breath. I reviewed the patient's medical record and his recent emergency department visit. He seems to have been otherwise healthy and prior to this visit. He denies any drug use. Lab work at the time of his last visit did demonstrate a slightly elevated BNP, but x-ray was unremarkable. They did discuss with cardiology who recommended aspirin and metoprolol at discharge. The has been giving extra doses of the metoprolol when she feels like his heartbeat is irregular though she is not counted an actual heart rate. The reports that she is a nurse. The patient's lab work today did not demonstrate leukocytosis or anemia. No significant electrolyte derangement. Potassium and magnesium are within normal limits. Serial troponins are not elevated. He does have a slight elevation in AST and ALT which makes me slightly suspicious for more of an alcohol abuse pattern. His BNP is more significantly elevated than it was 2 days ago. At 7000. This is very surprising given his chest x-ray does not reveal significant cardiomegaly, pleural effusion or pulmonary edema. I was able to obtain an echocardiogram in the emergency department. The echocardiogram demonstrates significant diminishment in his EF with global hypokinesis. EF estimated to be about 20%. I discussed with cardiology at [facility] who does recommend continued diuresis. The patient had already gotten 80 mg of Lasix. They will bring the patient to [facility] for transfer tomorrow when the bed is available for further cardiac workup. I did ask the patient if there is any recent illnesses that might have resulted in a postviral myocarditis or cardiomyopathy but the patient denies. I am suspicious for perhaps an alcoholic cardiomyopathy. They recommend decreasing his metoprolol to 2 0.5 mg twice daily. With a goal diuresis of 1 to 2 L negative by tomorrow. The patient will be admitted to this facility pending bed availability Quality:[facility] Health Related Social Needs: No Data to Display [facility] All Active Problems (Updated 08/19/24 @ 16:40 by Efife Fleming MD) Heart failure with reduced ejection fraction (Acute) Atrial fibrillation with RVR (Acute) History of arthroscopy of right shoulder (Acute ~11/04/22) Traumatic tear of right rotator cuff (Acute ~08/2022) Bilateral hip pain (Acute) Low back pain (Acute) Ganglion cyst (Acute) Encounter for screening colonoscopy (Acute) Adopted (Chronic) Medical History (Updated 08/19/24 @ 16:40 by Effie Fleming MD) Normal colonoscopy (07/06/18) Dr Valdovinos, repeat 10 years Family History Son No problems noted. Son No problems noted. Son No problems noted. Daughter No problems noted. 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 Pets and animals: Yes Pets and animals: dog(s) Sexually active: Yes Do you think of yourself as: straight/heterosexual Current gender identity: male What is your relationship status?: How often do you talk on the phone with friends or family?: three or more times per week How often do you get together with friends or relatives?: three or more times per week How often do you attend sabianist or roman catholic services?: 1-3 times per year Do you belong to any clubs or organized social groups?: yes Panel score (0-1 are the most socially isolated patients): 3 What type of physical activity do you participate in: walking and bicycling Duration: 45-60 minutes/day Frequency: 5-6 times per week Maribeth/Rastafarian: Congregational Special maribeth needs: No Seatbelt use: always Helmet use: Yes Helmet use: always Drive intox or ride w/intox funeral limousine driver: No Do you feel safe at home: Yes Do you feel safe in your relationship?: Yes 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
[2024-08-19 16:57] LABS: *AMPHETAMINES SCREEN URINE Negative (Negative); *BARBITURATES SCREEN URINE Negative (Negative); *BENZODIAZEPINES SCREEN URINE Negative (Negative); Cannabinoids THC Negative (Negative); Cocaine Screen,Urine Negative (Negative); METHADONE URINE SCREEN Negative (Negative); OPIATES URINE SCREEN Negative (Negative)
[2024-08-19 17:00] LABS: Tricyclic Antidepressants Negative (Negative)
[2024-08-19 17:49] LABS: Anion Gap 6.4 mmol/L (3-11); BUN 26 mg/dL (7-18); CO2 29.6 mmol/L (21.0-32.0); Calcium 9.7 mg/dL (8.5-10.1); Chloride 106 mmol/L (98-107); Estimated GFR 87.78 (mL/min/1.73m2); Glucose 86 mg/dL (74-106); Potassium 3.7 mmol/L (3.5-5.1); Sodium 142 mmol/L (136-145)
--- NOTE | 2024-08-19 17:52 | W.PC.ACHO ---
Registration Status: Primary Language: Preferred Language: ED Information & Data Chief Complaint Chest Pain 08/19/24 16:40 Triage Note Patient here with new onset 08/19/24 11:13 of afib (Dx Monday). 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 Medical / Surgical History (Last Reviewed 11/04/22 @ 06:23 by Caleb Kathleen) Normal colonoscopy (07/06/18) Most Recent Vital Signs Temperature 36.4 C L 08/19/24 11:13 Temperature Source Oral 08/19/24 11:13 Pulse 73 08/19/24 17:20 Pulse 91 H 08/19/24 17:30 Respiratory Rate 21 08/19/24 17:30 Respiratory Effort Normal, Non-Labored 08/19/24 11:27 Respiratory Depth Normal 08/19/24 11:27 Respiratory Pattern Normal 08/19/24 11:27 Blood Pressure 129/104 H 08/19/24 17:17 Blood Pressure Mean 110 08/19/24 17:17 Blood Pressure Position Sitting 08/19/24 11:13 Pulse Oximetry 98 08/19/24 17:30 Oxygen Delivery Method Room Air 08/19/24 11:13 Oxygen Flow Rate 0 08/19/24 11:13 Pain Level 8 08/19/24 17:33 Allergies No Known Allergies Allergy (Verified 08/19/24 11:20) Precautions Isolation Standard precaution 08/19/24 11:27 IV IV Catheter Type [Right Peripheral IV Forearm] IV Catheter Type [Left Saline Lock Antecubital] IV Catheter Gauge [Right 18 Forearm] IV Catheter Gauge [Left 18 Antecubital] Diet Orders Category Date Time Status Low Sodium [DIET] Nutrition 08/19/24 Dinner Active Diagnostics 08/19/24 08/19/24 08/19/24 Range/Units 17:30 15:06 14:45 WBC (4.4-10.8) 10^3/uL RBC (4.36-5.78) 10^6/uL Hgb (13.5-17.5) g/dL Hct (40.0-50.0) % MCV (80-95) fL MCH (27.0-33.0) pg MCHC (32.0-36.0) % RDW (11.8-14.1) % Plt Count (130-400) 10^3/uL MPV (8.0-11.0) fL Immature Gran % % Neutrophils % % Lymphocytes % % Monocytes % % Eosinophils % % Basophils % % Nucleated RBC % (0.0-0.3) % Absolute Neutrophils (1.2-6.7) 10^3/uL Absolute Lymphocytes (1.2-3.4) 10^3/uL Absolute Monocytes (0.1-0.8) 10^3/uL Absolute Eosinophils (0.0-0.7) 10^3/uL Absolute Basophils (0.0-0.2) 10^3/uL Sodium 142 (136-145) mmol/L Potassium 3.7 (3.5-5.1) mmol/L Chloride 106 (98-107) mmol/L Carbon Dioxide 29.6 (21.0-32.0) mmol/L Anion Gap 6.4 (3-11) mmol/L BUN 26 H (7-18) mg/dL Creatinine 1.0 (0.70-1.30) mg/dL Est GFR (CKD-EPI 2020) 87.78 (mL/min/1.73m2) Glucose 86 (74-106) mg/dL Calcium 9.7 (8.5-10.1) mg/dL Magnesium (1.8-2.4) mg/dL Total Bilirubin (0.2-1.0) mg/dL AST (15-37) U/L ALT (16-63) U/L Alkaline Phosphatase (46-116) U/L Troponin I 43 (<or=76) ng/L NT-Pro-B Natriuret Pep (<300) pg/mL Total Protein (6.4-8.2) g/dL Albumin (3.4-5.0) g/dL TSH (0.36-3.74) uIU/mL Urine Opiates Screen Negative (Negative) Urine Methadone Screen Negative (Negative) Ur Barbiturates Screen Negative (Negative) Ur Tricyclics Screen Negative (Negative) Ur Amphetamines Screen Negative (Negative) U Benzodiazepines Scrn Negative (Negative) Urine Cocaine Screen Negative (Negative) Ur THC Screen Negative (Negative) 08/19/24 08/19/24 Range/Units 12:35 11:35 WBC 9.06 (4.4-10.8) 10^3/uL RBC 5.13 (4.36-5.78) 10^6/uL Hgb 15.3 (13.5-17.5) g/dL Hct 45.4 (40.0-50.0) % MCV 89 (80-95) fL MCH 29.8 (27.0-33.0) pg MCHC 33.7 (32.0-36.0) % RDW 13.1 (11.8-14.1) % Plt Count 200 (130-400) 10^3/uL MPV 9.4 (8.0-11.0) fL Immature Gran % 0.2 % Neutrophils % 67.4 % Lymphocytes % 22.8 % Monocytes % 7.1 % Eosinophils % 2.3 % Basophils % 0.2 % Nucleated RBC % 0.0 (0.0-0.3) % Absolute Neutrophils 6.10 (1.2-6.7) 10^3/uL Absolute Lymphocytes 2.07 (1.2-3.4) 10^3/uL Absolute Monocytes 0.64 (0.1-0.8) 10^3/uL Absolute Eosinophils 0.21 (0.0-0.7) 10^3/uL Absolute Basophils 0.02 (0.0-0.2) 10^3/uL Sodium 141 (136-145) mmol/L Potassium 4.3 (3.5-5.1) mmol/L Chloride 110 H (98-107) mmol/L Carbon Dioxide 22.5 (21.0-32.0) mmol/L Anion Gap 8.5 (3-11) mmol/L BUN 29 H (7-18) mg/dL Creatinine 1.0 (0.70-1.30) mg/dL Est GFR (CKD-EPI 2020) 87.78 (mL/min/1.73m2) Glucose 78 (74-106) mg/dL Calcium 8.9 (8.5-10.1) mg/dL Magnesium 2.1 (1.8-2.4) mg/dL Total Bilirubin 1.29 H (0.2-1.0) mg/dL AST 56 H (15-37) U/L ALT 158 H (16-63) U/L Alkaline Phosphatase 64 (46-116) U/L Troponin I 39 40 (<or=76) ng/L NT-Pro-B Natriuret Pep 7084 H (<300) pg/mL Total Protein 6.9 (6.4-8.2) g/dL Albumin 3.8 (3.4-5.0) g/dL TSH 2.86 (0.36-3.74) uIU/mL Urine Opiates Screen (Negative) Urine Methadone Screen (Negative) Ur Barbiturates Screen (Negative) Ur Tricyclics Screen (Negative) Ur Amphetamines Screen (Negative) U Benzodiazepines Scrn (Negative) Urine Cocaine Screen (Negative) Ur THC Screen (Negative) Intake and Output - 24 Hour Total 08/19/24 10:28 thru 08/19/24 17:34 Output Total 3000 Balance -3000 Weight 84.822 kg Output: Urine 3000 Falls Risk Assessment History of Falls No History 08/19/24 11:27 Contributing Factors No Factors 08/19/24 11:27 Ambulatory Aids Independent 08/19/24 11:27 Tubes/Lines None 08/19/24 11:27 Gait Evaluation No gait disturbance 08/19/24 11:27 Fall Total Score 0 08/19/24 11:27 Level of Risk Standard/Low Risk 08/19/24 11:27 Problems (Last Reviewed 11/04/22 @ 06:23 by Caleb Kathleen) Heart failure with reduced ejection fraction (Acute) Atrial fibrillation with RVR (Acute) v v v v v v v v v Sending and/or Receiving Nurses: Please use comment section below to note any information pertinent to the patient hand-off not included above. Information / Comments: Report received from: Onelai RN ast [id number], first call to ED at 1645 but RN unavailable at that time
--- NOTE | 2024-08-19 18:26 | NUR.NOTE ---
patient arrived on unit AxOx4, denies pain, VSS, put on telemetry with rate in 70s/80s afib, at bedside, assessment WNL, denies chest pain or tightness, PIV intact, given meal, discussed POC which is to keep pt on lasix and metoprolol to manage heart failure and rate control with afib, oriented to room and staff, bed low/locked, call smiley in reachNursing Note:
[2024-08-19] MEDS: Melatonin 3 MG TAB PO (19:46)
[2024-08-19] MEDS: Metoprolol 12.5 MG TAB PO (19:46)
[2024-08-19] MEDS: Normal Saline Flush 10 ML SYR IVP (19:47)
[2024-08-20 03:06] VITALS: BP 99/61; PULSE 65; RESP 16; TEMP 37.2; O2SAT 93
[2024-08-20 06:45] LABS: Abs Immature Grans 0.03 10^3/uL (0.0-0.06); Absolute Basophil Count 0.03 10^3/uL (0.0-0.2); Absolute Eosinophil Count 0.31 10^3/uL (0.0-0.7); Absolute Lymphocyte Count 2.05 10^3/uL (1.2-3.4); Absolute Monocyte Count 0.64 10^3/uL (0.1-0.8); Absolute Neutrophil Count 4.65 10^3/uL (1.2-6.7); Basophils % 0.4 %; HCT 46.7 % (40.0-50.0); Immature Grans % 0.4 %; Lymphocytes % 26.6 %; MCHC 34.3 % (32.0-36.0); MCV 88 fL (80-95); MPV 9.5 fL (8.0-11.0); Monocytes % 8.3 %; Neutrophils % 60.3 %; Platelet Count 218 10^3/uL (130-400); RBC 5.33 10^6/uL (4.36-5.78); RDW 12.9 % (11.8-14.1); RDW-SD 41.6 fL; WBC 7.71 10^3/uL (4.4-10.8)
[2024-08-20 07:03] LABS: Anion Gap 7.4 mmol/L (3-11); BUN 32 mg/dL (7-18); CO2 28.6 mmol/L (21.0-32.0); CREATININE 1.3 mg/dL (0.70-1.30); Calcium 9.4 mg/dL (8.5-10.1); Chloride 106 mmol/L (98-107); Estimated GFR 64.07 (mL/min/1.73m2); Glucose 79 mg/dL (74-106); Potassium 3.5 mmol/L (3.5-5.1); Sodium 142 mmol/L (136-145)
--- NOTE | 2024-08-20 08:01 | NUR.NOTE ---
patient seen at bedside during report, AxOx4, denies pain, CP, tightness or SOB at this time, up ad alyssa in room voiding in urinal, pending poss transfer to [facility] today, on tele with rate NSR with frequent PVCs, introduced to staff and discussed POC. Nursing Note:
[2024-08-20 08:10] VITALS: BP 117/72; PULSE 84; RESP 18; TEMP 36.5; O2SAT 98
[2024-08-20] MEDS: Aspirin E.C. 81 MG TABEC PO (08:13)
[2024-08-20] MEDS: Metoprolol 12.5 MG TAB PO (08:13)
[2024-08-20] MEDS: Normal Saline Flush 10 ML SYR IVP (08:13)
--- NOTE | 2024-08-20 11:17 | PDOC.CMIN ---
Date of service: 08/20/24 Time of Service: 11:17 Care Management Initial Assmt Initial Assessment Reason for Hospitalization: CHF Functional Status/Living Situation Patient Presentation: Dae was sitting up in bed when CM met with him. he was pleasant in interaction and engaged easily with CM. Dae was admitted with [facility] and is waiting for a bed at [facility] He lives in [facility] [place] [facility] with his Mony who is a nurse that works for [employer]. They have 4 children who live in different states and 3 grandchildren. 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 he stated that he is almost always home at night and has been able to participate in all of his children's activities. He is independent at baseline and does not receive any community services. Dae and Mony did not have Advanced Directives and indicated that they would like to complete them, which was done. CM filed them both with the state registry, made copies and had them scanned into their medical records. At the end of the day Dae learned that he had a bed at [facility] and was transferred. Town of Residence: [place] Resides with: Spouse ( Mony) Significant Other/Family: Out of area Employment Status: Employed Instrumental Activities of Daily Living (ADLs): Independent Medications Medication Management: No Issues/Barriers identified Advance Directives Advance Directives: Do you have an Advance Directive: Y 11/01/18 11:00 AD On File at [facility]: Y 11/01/18 11:00 Date Asked 04/27/18 11/01/18 11:00 AD Date Reviewed 08/19/24 08/19/24 17:35 COLST On File at [facility] COLST Date Scanned Code Status Resuscitation Status Full Code Portal Pt does not currently have a portal and education provided: Yes Insurance Coverage/Financial Issues Insurance: CBA Care Team Visit Care Team Role Provider Type Navdeep Multani MD Primary Care Provider [facility] STAFF PHYSICIAN Effie Fleming MD Emergency Provider [facility] STAFF PHYSICIAN Thierry Avila MD Admit Provider [facility] STAFF PHYSICIAN Attending Provider Discharge Potential Discharge Needs: Other (transfer to [facility]) Anticipated Barriers to Discharge: Bed availability Transportation: EMS Plan: Mark has been accepted for transfer to [facility]. A bed became available at the end of the day and he was transferred via [place]. He will follow up with facility providers and plan of care. Social Determinants of Health Screening Social Determinants of Health last assessed: 08/20/24 Will the Patient Participate in the Screening?: Yes Do you worry about having a steady place to live?: no Problems where you live: no known problems In the past 12 months, have you had to go without electric, gas, oil or water in your home?: no Have you or anyone in your house had to go without enough food to eat?: no Has lack of transportation kept you from medical appointments or from doing things needed for daily living?: no Has anyone in your life made you feel unsafe or unsupported?: no How hard is it for you to pay for the very basics like food, housing, medical care, and heating? Would you say it is:: Not hard at all Do you want help finding or keeping work or a job?: I do not need or want help If for any reason you need help with day-to-day activities such as bathing, preparing meals, shopping, managing finances, etc., do you get the help you need?: I don?t need any help How often do you feel lonely or isolated from those around you?: Never Do you speak a language other than Amharic at home?: No Does the patient want assistance with any of the above?: No PFSH All Active Problems (Updated 08/19/24 @ 16:40 by Effie Fleming MD) Heart failure with reduced ejection fraction (Acute) Atrial fibrillation with RVR (Acute) History of arthroscopy of right shoulder (Acute ~11/04/22) Traumatic tear of right rotator cuff (Acute ~08/2022) Bilateral hip pain (Acute) Low back pain (Acute) Ganglion cyst (Acute) Encounter for screening colonoscopy (Acute) Adopted (Chronic) Medical History (Updated 08/19/24 @ 16:40 by Effie Fleming MD) Normal colonoscopy (07/06/18) Dr Valdovinos, repeat 10 years Family History Son No problems noted. Son No problems noted. Son No problems noted. Daughter No problems noted. 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 Pets and animals: Yes Pets and animals: dog(s) Sexually active: Yes Do you think of yourself as: straight/heterosexual Current gender identity: male What is your relationship status?: How often do you talk on the phone with friends or family?: three or more times per week How often do you get together with friends or relatives?: three or more times per week How often do you attend moravian or sabianism services?: 1-3 times per year Do you belong to any clubs or organized social groups?: yes Panel score (0-1 are the most socially isolated patients): 3 What type of physical activity do you participate in: walking and bicycling Duration: 45-60 minutes/day Frequency: 5-6 times per week Maribeth/Restorationist: Episcopalian Special maribeth needs: No Seatbelt use: always Helmet use: Yes Helmet use: always Drive intox or ride w/intox electric screw driver operator: No Do you feel safe at home: Yes Do you feel safe in your relationship?: Yes 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
--- NOTE | 2024-08-20 13:20 | NUR.NOTE ---
patient doing well throughout shift, rate controlled on tele in NSR, denies pain or needs, bed meeting at 1400 at [facility], pending update on availability for transfer. resting in bed, at bedside. Nursing Note:
--- NOTE | 2024-08-20 15:07 | DSE_ITS ---
Date of service: 08/20/24 Time of Service: 15:07 DS: Diagnosis Discharge Diagnosis (1) Heart failure with reduced ejection fraction: Status: Acute (2) Atrial fibrillation with RVR: Status: Acute Discharge Plan Disposition Patient Disposition: Transfer-Acute Inpatient Care Specific Acute Inpt Facility: [facility] Condition: Stable Discharge Details Reason For Visit: heart failure w/ reduced EF Admit Date/Time: 08/19/24 16:11 Admit Provider: Thierry Avila Attending Provider: Thierry Avila Primary Care Provider: Navdeep Multani Hospital Course Hospital Course: This is a 58-year-old male patient no significant past medical history who presented to the emergency department for re- at that time exam after he was found to be in new A-fib Monday. He was playing in a hockey game and experienced presyncope and shortness of breath. His workup at that time did show A-fib with RVR. He was started on a beta-adrienne and his case was discussed with cardiology at [facility] and plan was to discharge home with further outpatient evaluation. He returned here to the emergency department yesterday for increasing sob and orthopnea and was able to undergo an echocardiogram which showed severe reduced EF at 22%. His troponins were negative. Found to have a BNP of 7000. He was given Lasix 80 mg IV and diuresed over 3 L of urine. Potassium this morning down to 3.5 which was repleted with 20 meq p.o. to be given 3 times daily with meals for 3 doses. Magnesium was added on and pending. He has remained in sinus rhythm with PVCs on telemetry rate in the 70s and 80s. Blood pressure controlled with no reports of chest pain or shortness of breath. His case was again discussed with cardiology who has been accepted in transfer and is awaiting bed availability. Plan is to transfer down by ground EMS when bed available. discussed with DR Avila Home Meds and New Rx's Prescriptions: New metoprolol tartrate 25 mg Tablet 12.5 mg PO BID Qty: 1 0RF Continued aspirin 81 mg capsule 81 mg PO DAILY Qty: 30 2RF Held omega [id number]-fish oil 900-1,400 mg capsule,delayed release(/EC) 1 cap PO DAILY Hold Instructions: discuss with outpatient team Discontinued metoprolol tartrate 25 mg tablet 25 mg PO BID Qty: 60 2RF No Action meloxicam 15 mg tablet 15 mg PO DAILY Qty: 90 3RF Discharge Instructions Instructions: Heart failure and atrial fibrillation Activity:: Activity as Tolerated Equipment/Supplies:: No Equipment Needed Diet:: Low Sodium DS: Summary Time Spent with Patient providing and/or coordinating discharge services: Greater than 30 minutes Status at Discharge Functional status at discharge: independent ambulation Overall status at discharge: patient is not back to baseline Mental Status: mental status grossly normal Speech and Movement: speech and movement normal Mood: congruent mood Affect: normal affect Quality:SDOH Health Related Social Needs: No Data to Display Exam Narrative Exam Narrative: Well-appearing male of stated age in no acute distress head is atraumatic eyes nonicteric noninjected oral mucosa is moist neck full range of motion cardiovascular regular rate irregular rhythm sinus rhythm with PVC's. no peripheral edema, lungs clear, dim bases. skin with no rashes or lesions. neuro awake alert oriented no focal deficits. psychiatric appropriate mood and affect. Psych Mental Status: mental status grossly normal Speech and Movement: speech and movement normal Mood: congruent mood Affect: normal affect DS: Data Vitals/I&O Vitals and I&O: Vital Signs Temperature 36.5 C 08/20/24 08:10 Temperature Source Tympanic 08/20/24 08:10 Pulse 84 08/20/24 08:10 Pulse 91 H 08/19/24 17:30 Respiratory Rate 18 08/20/24 08:10 Respiratory Effort Normal, Non-Labored 08/19/24 11:27 Respiratory Depth Normal 08/19/24 11:27 Respiratory Pattern Normal 08/19/24 11:27 Blood Pressure 117/72 08/20/24 08:10 Blood Pressure Mean 110 08/19/24 17:17 Blood Pressure Position Sitting 08/19/24 11:13 Pulse Oximetry 98 08/20/24 08:10 Oxygen Delivery Method Room Air 08/20/24 08:10 Oxygen Flow Rate 0 08/20/24 08:10 Pain Level 0 08/20/24 08:10 Intake & Output 08/19/24 08/20/24 08/20/24 23:59 11:59 23:59 Intake Total 560 / 560 360 / 600 240 / 600 Output Total 3550 / 3550 300 / 300 Balance -2990 / -2990 60 / 300 240 / 300 Weight 79.6 kg Intake: Oral 560 / 560 360 / 600 240 / 600 Output: Urine 3550 / 3550 300 / 300 Other: Urine Color Yellow Yellow Urine Appearance Clear Clear Urine Odor None None Data Completed and Pending Labs on day of discharge: Labs from last 24 hours 08/20/24 08/20/24 08/19/24 Unknown 06:15 17:30 WBC 7.71 RBC 5.33 Hgb 16.0 Hct 46.7 MCV 88 MCH 30.0 MCHC 34.3 RDW 12.9 Plt Count 218 MPV 9.5 Immature Gran % 0.4 Neutrophils % 60.3 Lymphocytes % 26.6 Monocytes % 8.3 Eosinophils % 4.0 Basophils % 0.4 Nucleated RBC % 0.0 Absolute Neutrophils 4.65 Absolute Lymphocytes 2.05 Absolute Monocytes 0.64 Absolute Eosinophils 0.31 Absolute Basophils 0.03 Sodium 142 142 Potassium 3.5 3.7 Chloride 106 106 Carbon Dioxide 28.6 29.6 Anion Gap 7.4 6.4 BUN 32 H 26 H Creatinine 1.3 1.0 Est GFR (CKD-EPI 2020) 64.07 87.78 Glucose 79 86 Calcium 9.4 9.7 Troponin I Urine Opiates Screen Urine Methadone Screen Ur Barbiturates Screen Ur Tricyclics Screen Ur Amphetamines Screen U Benzodiazepines Scrn Urine Cocaine Screen Ur THC Screen Add-On Test Request Pending 08/19/24 08/19/24 15:06 14:45 WBC RBC Hgb Hct MCV MCH MCHC RDW Plt Count MPV Immature Gran % Neutrophils % Lymphocytes % Monocytes % Eosinophils % Basophils % Nucleated RBC % Absolute Neutrophils Absolute Lymphocytes Absolute Monocytes Absolute Eosinophils Absolute Basophils Sodium Potassium Chloride Carbon Dioxide Anion Gap BUN Creatinine Est GFR (CKD-EPI 2020) Glucose Calcium Troponin I 43 Urine Opiates Screen Negative Urine Methadone Screen Negative Ur Barbiturates Screen Negative Ur Tricyclics Screen Negative Ur Amphetamines Screen Negative U Benzodiazepines Scrn Negative Urine Cocaine Screen Negative Ur THC Screen Negative Add-On Test Request PFSH All Active Problems (Updated 08/19/24 @ 16:40 by Effie Fleming MD) Heart failure with reduced ejection fraction (Acute) Atrial fibrillation with RVR (Acute) History of arthroscopy of right shoulder (Acute ~11/04/22) Traumatic tear of right rotator cuff (Acute ~08/2022) Bilateral hip pain (Acute) Low back pain (Acute) Ganglion cyst (Acute) Encounter for screening colonoscopy (Acute) Adopted (Chronic) Medical History (Updated 08/19/24 @ 16:40 by Effie Fleming MD) Normal colonoscopy (07/06/18) Dr Valdovinos, repeat 10 years Family History Son No problems noted. Son No problems noted. Son No problems noted. Daughter No problems noted. Social History Smoking/Tobacco Use Status: Former Tobacco Use Quit Date: 07/03/07 Tobacco: How many years used: 10 Smoking risk assessment performed?: Yes Alcohol Intake: current Alcohol Intake frequency: a few times a week Alcohol type: beer and hard liquor Drug use: Never Substance use type: does not use Adopted: Yes Caregiver/Support person: No Household members: spouse and family Housing: house Communication Needs: None Do you need help understanding health information?: Never current occupation: [employer] Pets and animals: Yes Pets and animals: dog(s) Sexually active: Yes Do you think of yourself as: straight/heterosexual Current gender identity: male What is your relationship status?: How often do you talk on the phone with friends or family?: three or more times per week How often do you get together with friends or relatives?: three or more times per week How often do you attend scientologist or cheondoism services?: 1-3 times per year Do you belong to any clubs or organized social groups?: yes Panel score (0-1 are the most socially isolated patients): 3 What type of physical activity do you participate in: walking and bicycling Duration: 45-60 minutes/day Frequency: 5-6 times per week Maribeth/Taoism: Oriental Orthodox Special maribeth needs: No Seatbelt use: always Helmet use: Yes Helmet use: always Drive intox or ride w/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
--- NOTE | 2024-08-20 15:37 | CHAPLAIN ---
Mark was resting in bed when I visited this morning. His was with him. He has been [place] [facility] and is waiting for a bed to open up. Mark said he's dealing with cardiac stuff, and his brought is bible in for him and he's been praying. I will continue to visit if he's not transferred. Hopefully that will happen soon.
[2024-08-20 15:47] VITALS: BP 92/62; PULSE 50; RESP 15; TEMP 36.8; O2SAT 95
[2024-08-20 16:45] VITALS: PULSE 91
[2024-08-20] MEDS: Potassium Chloride 20 MEQ TABCR PO (17:25)
[2024-08-20 20:00] LABS: Lab Add On Test DONE
--- NOTE | 2024-08-20 20:50 | PDOC.CMDIS ---
Date of service: 08/20/24 Time of Service: 20:50 Care Management Discharge SDOH Health Related Social Needs: No Data to Display
== END 2024-08-20 19:04 | disposition short-term general hospital (02) | DRG 308 ==
LOC: ER 16:40 → MS 17:35
PROVIDERS: Nurse Practitioner Acute Care; Admitting Provider Hospitalist; Emergency Provider Emergency Medicine; PCP Family Medicine; Visit Provider Hospitalist
DX: I48.91 Unspecified atrial fibrillation (principal); I50.21 Acute systolic (congestive) heart failure; E87.6 Hypokalemia; I49.3 Ventricular premature depolarization
CPT/HCPCS: 00123; 36415; 80048; 80053; 80307; 93005; 96374; 99285; 71045; 83735; 83880; 84443; 84484; 85025; 93010; 93306; 99223; 99239; J1940; J3490

== ENCOUNTER 2024-12-04 10:34 | Outpatient (CLI) | payer OTHER, SELFPAY ==
--- NOTE | 2024-12-04 10:30 | RT.EKG_ITS ---
APPROVED REPORT Exam: Resting ECG Reason for Exam: afib Patient Location: O HR:71 bpm ECG Measurements Heart Rate 71 AXIS AZ 191 P 68 QRSd 124 QRS -46 QT 435 T 120 QTc 473 Conclusion Sinus rhythm...normal P axis, V-rate 50- 99 Multiple ventricular premature complexes...V complexes w/ short R-R intervls Probable left atrial enlargement...P >50mS, <-0.10mV V1 LVH with IVCD, LAD and secondary repol abnrm...multi-criteria, wQRSd, abnr ST-T
== END 2024-12-04 10:35 | disposition home or self-care (01) ==
LOC: DI.CARD 10:34
PROVIDERS: PCP Family Medicine; Visit Provider Internal Medicine Cardiovascular Disease
DX: I48.91 Unspecified atrial fibrillation (principal); I51.7 Cardiomegaly
CPT/HCPCS: 93010

== ENCOUNTER 2025-03-12 02:40 | Outpatient (CLI) | payer OTHER, SELFPAY ==
--- NOTE | 2025-03-12 08:30 | DI.US_ITS ---
APPROVED REPORT EXAM: Comprehensive 2D, Doppler, and color-flow Echocardiogram Patient Location: Out-Patient Invoice Classification Clerk: Sahil Capps RDCS (AE) Indications: Chronic systolic heart failure, pAfib Other Information Study Quality: Adequate Conclusion Mildly dilated left ventricle. Ejection fraction is 25%. There is global hypokinesis Normal right ventricular size and function Both atria are normal in size Device lead noted in the right heart There are no structural valvular abnormalities Trace to mild mitral regurgitation Wall motion Left Ventricle Left ventricle is mildly dilated. Left ventricular systolic function is severely decreased. There is normal left ventricular wall thickness. There is global hypokinesis of the left ventricle. There is no ventricular septal defect visualized. LVEF is25%. Right Ventricle The right ventricle is normal size. The right ventricular systolic function is normal. Device lead is present in the right ventricle. Atria The left atrium size is normal. The right atrium size is normal. The interatrial septum is intact with no evidence for an atrial septal defect. Aortic Valve The aortic valve is normal in structure. Aortic valve is trileaflet. There is no aortic valvular stenosis. No aortic regurgitation is present. Mitral Valve The mitral valve is normal in structure. No evidence of mitral valve stenosis. Trace to mild mitral regurgitation. Tricuspid Valve The tricuspid valve is normal in structure. There is no tricuspid valve stenosis. Trace tricuspid regurgitation. Pulmonic Valve The pulmonary valve is normal in structure. There is no pulmonic valvular stenosis. There is no pulmonic valvular regurgitation. Great Vessels Ascending aorta is not well visualized. IVC is normal in size and collapses >50% with inspiration. Pericardium There is no pericardial effusion. 2D Dimensions IVSD d PLAX 0.98 cm M: 0.6-1.2 Ao Root d 3.32 cm M: 3.1 - 3.7 LVPW d PLAX 0.96 cm M: 0.6 - 1.2 LVID d PLAX 6.34 cm M: 4.2 - 5.8 LVDs 5.66 cm M: 2.5 - 4.0 LV EF Teichholz 22.9 % FS 10.76 % LV EDV (Teich) 204.4 mL LV ESV (Teich) 157.6 mL Stroke Vol Index (Teich) 22.61 M-Mode TAPSE 1.34 cm (M/F) >1.7 Auto EF LV EDV A4C 188.0 mL LV EDV A2C 203.5 mL LV EDV BP 198.6 mL LV ESV A4C 140.7 mL LV ESV A2C 149.9 mL LV ESV BP 145.7 mL LVEF(%) A4C 25.2 % LVEF(%) A2C 26.4 % LVEF(%) BP 26.6 % LV SV A4C 47.4 ml LV SV A2C 53.7 ml LV SV BP 52.8 ml LV CO A4C 2.8 L/min LV CO A2C 3.6 L/min LV CO BP 3.2 L/min HR A4C 60.08 BPM HR A2C 67.17 BPM LV EDV Index (BP) LA Volume LA Length A4C 4.4 cm LA Length A2C 4.4 cm LA Area A4C s 12.16 cm2 LA Area A2C s 13.09 cm2 LA Vol A4C A-L 28.45 mL LA Vol A2C A-L 32.95 mL LA Vol Biplane A-L 30.6 mL LA Vol/BSA A4C A-L LA Vol/BSA A2C A-L LA Vol/BSA BP A-L 14.8 mL/m2 LA Vol A4C MOD 26.6 mL LA Vol A2C MOD 31.6 mL LA Vol BP MOD 28.8 mL RA Volume RA Area A4C 8.9 cm2 RA ESV A4C (A-L) 16.0mL RA Vol/BSA A4C A-L RA Length A4C 4.2 cm RA ESV A4C (MOD) 14.6mL LV Diastology MV E' medial 0.035 (>0.07 m/s) MV E Vmax 0.41 (0.4-1.3 m/s) MV E/E' MED 11.78 (<14) MV A Vmax 0.70 (0.4-1.3 m/s) MV E' lateral 0.039 (>0.1 m/s) E/A Ratio 0.6 MV E/E' LAT 10.49 (<14) MV E' Average 0.037 m/s MV E/E'(average) 11.10 Aortic Valve AoV Vmax 0.80 m/s LVOT Vmax 0.54 m/s AoV Peak Grad 2.6 mmHg LVOT Peak Grad 1.1 mmHg AoV Area (Vmax) 2.76 cm2 LVOT VTI 0.099 m AoV VTI 0.103 m LVOT Mean Grad 0.8 mmHg AoV Mean Ricki. 0.67 m/s LVOT SV 41.19 mL AoV Mean Grad 1.9 mmHg LVOT Diam s 2.25 cm AoV Area (VTI) 3.98 cm2 AV Regurg Peak Gr. 2.58 mmHg Velocity Ratio 0.68 Mitral Valve MV DT 256 (160-240 msec) Pulmonary Valve PV Vmax 0.79 (0.5-1.5 m/s) RVOT Vmax 0.37 m/s PV Peak Grad 2.5 mmHg RVOT Peak Gr. 0.5 mmHg PV Mean Ricki 0.54 m/s RVOT VTI 0.083 m PV Mean Grad 1.3 mmHg RVOT Mean Gr. 0.3 mmHg
== END 2025-03-12 03:00 ==
PROVIDERS: PCP Family Medicine; Visit Provider Internal Medicine Cardiovascular Disease
DX: Z02.71 Encounter for disability determination (principal); I50.21 Acute systolic (congestive) heart failure; I48.0 Paroxysmal atrial fibrillation
CPT/HCPCS: 93306